=== PATIENT | male | born 1960 | race Two or more races ===

== ENCOUNTER 2016-07-25 18:59 | Inpatient (IN) | payer OTHER, SELFPAY ==
[2016-07-25] MEDS ORDERED: Sodium Chloride 0.9% 10 ML Syringe FLUSH PRN (19:15)
[2016-07-25] MEDS ORDERED: Sodium Chloride 0.9% 2.5 ML Syringe FLUSH PRN (19:15)
[2016-07-25] MEDS ORDERED: Sodium Chloride 0.9% 1,000 ML IV SCH (19:15)
[2016-07-25] MEDS ORDERED: Aspirin 81 MG Tab.Chew PO ONE (19:15)
--- NOTE | 2016-07-25 19:20 | EDM.PDOC ---
ED HISTORY OF PRESENT ILLNESS - General Chief Complaint: Respiratory Problem Stated Complaint: TROUBLE BREATHING/HEART PROBLEMS Time Seen by Provider: 07/25/16 19:07 Source of Information: Reports: Patient History Limitations: Reports: No limitations - History of Present Illness INITIAL COMMENTS - FREE TEXT/NARRATIVE: HISTORY AND PHYSICAL: History of present illness: 55-year-old [place] male [place] one [place] ago now presents to the emergency department brought in by family for evaluation of mild shortness of breath off his baseline and one episode of dizziness today. 3 days ago patient received mild shortness of breath. No chest pain fever productive cough or pleuritic pain. Patient has been a long-term smoker and has no known history of high blood pressure cholesterol diabetes or family history of heart disease or heart problems. Went to a clinic yesterday an x-ray was done at which time he was told he might have some congestive heart failure because his heart was enlarged. No EKG or labs were done. Patient was referred as an outpatient mammographer and he made an appointment but later today experienced an episode of lightheadedness so his family brought him to the emergency department for evaluation. By patient's description he was not close to fainting he just felt slightly lightheaded. Patient has had no chest pain pressure tightness squeezing or any chest discomfort whatsoever. Review of systems: As per history of present illness and below otherwise all systems reviewed and negative. Past medical history: As per history of present illness and as reviewed below otherwise noncontributory. Surgical history: As per history of present illness and as reviewed below otherwise noncontributory. Social history: No reported history of drug or alcohol abuse. Family history: As per history of present illness and as reviewed below otherwise noncontributory. Physical exam: HEENT: Atraumatic, normocephalic, pupils reactive, negative for conjunctival pallor or scleral icterus, mucous membranes moist, throat clear, neck supple, nontender, trachea midline. Lungs: Clear to auscultation, breath sounds equal bilaterally, chest nontender. Heart: S1S2, irregularly irregular negative for clicks, rubs, or JVD. Ventricular rate ranging from 80-108 Abdomen: Soft, nondistended, nontender. Negative for masses or hepatosplenomegaly. Negative for costovertebral tenderness. Pelvis: Stable nontender. Genitourinary: Deferred. Rectal: Deferred. Extremities: Atraumatic, negative for cords or calf pain. Neurovascular unremarkable. No edema Neuro: Awake, alert, oriented. Cranial nerves grossly unremarkable. Cerebellum unremarkable. Motor and sensory unremarkable throughout. Exam nonfocal. Diagnostics: [Chest x-ray interpreted by me cardiomegaly with cephalization, congestive changes, no ely pulmonary edema no infiltrate EKG #1 at 7:02 PM A. fib with ventricular rate of 108, anterior Q waves with repolarization abnormality, no STEMI ] EKG #2 at 7:25 PM atrial flutter at 77 anterior Q waves with repolarization abnormality no STEMI Therapeutics: [] Impression: [] Plan: [Signs and symptoms consistent with new onset A. fib with suspected new onset mild CHF. Chest x-ray with megaly and congestive changes however patient has no respiratory distress or ely pulmonary edema. Normal respiratory rate and pulse ox. Patient stable and asymptomatic. Patient had no chest pain at any time since arriving in the [facility] nor over the last 3 days during his mild symptomatic manifestation nor today before or after his episode of mild dizziness. Negative. BNP elevated at 1457. Case discussed with Dr. Post [facility] is training professional who is aware of history and findings and agrees with inpatient telemetry admission for workup and treatment of new onset A. fib and new onset CHF. Definitive disposition and diagnosis as appropriate pending reevaluation and review of above. - Related Data Allergies/ADRs: Allergies Allergy/AdvReac Type Severity Reaction Status Date / Time No Known Allergies Allergy Verified 07/25/16 19:17 Home Meds: Home Meds . [No Known Home Meds] 07/25/16 [History] Past Medical History HEENT History: Reports: None Cardiovascular History: Reports: None Respiratory History: Reports: None Gastrointestinal History: Reports: None Genitourinary History: Reports: None Musculoskeletal History: Reports: None Neurological History: Reports: None Psychiatric History: Reports: None Endocrine/Metabolic History: Reports: None Hematologic History: Reports: None Immunologic History: Reports: None Oncologic (Cancer) History: Reports: None Dermatologic History: Reports: None - Infectious Disease History Infectious Disease History: Reports: None - Past Surgical History Head Surgeries/Procedures: Reports: None GI Surgical History: Reports: Appendectomy Social & Family History - Family History Family Medical History: Noncontributory - Tobacco Use Smoking Status *Q: Former Smoker - Caffeine Use Caffeine Use: Reports: Coffee - Recreational Drug Use Recreational Drug Use: No ED ROS GENERAL - Review of Systems Review Of Systems: See Below (Per history of present illness) ED EXAM, GENERAL - Physical Exam Exam: See Below (History of present illness) Course - Vital Signs Last Recorded V/S: Last Vital Signs Temp 36.3 C 07/25/16 19:11 Pulse 82 07/25/16 19:11 Resp 21 H 07/25/16 19:11 BP 152/76 H 07/25/16 19:11 Pulse Ox 100 07/25/16 19:11 - Orders/Labs/Meds Orders: Active Orders 24 hr Category Date Time Status Admission Status [Patient Status] [ADT] Stat ADT 07/25/16 20:21 Ordered EKG 12 Lead [EKG Documentation Completion] [RC] STAT Care 07/25/16 19:15 Active EKG Documentation Completion [RC] STAT Care 07/25/16 19:22 Active Chest 1V Frontal [CR] Stat Exams 07/25/16 19:15 Taken Furosemide [Lasix] Med 07/25/16 20:25 Once 20 mg IVPUSH NOW ONE Sodium Chloride 0.9% [Normal Saline] 1,000 ml Med 07/25/16 19:15 Active IV ASDIRECTED Sodium Chloride 0.9% [Saline Flush] Med 07/25/16 19:15 Active 10 ml FLUSH ASDIRECTED PRN Sodium Chloride 0.9% [Saline Flush] Med 07/25/16 19:15 Active 2.5 ml FLUSH ASDIRECTED PRN Peripheral IV Insertion Adult [OM.PC] Stat Oth 07/25/16 19:15 Ordered Medication Orders Furosemide (Lasix) 20 mg IVPUSH NOW ONE Stop: 07/25/16 20:26 Sodium Chloride (Normal Saline) 1,000 mls @ 125 mls/hr IV ASDIRECTED TELLY Last Admin: 07/25/16 19:26 Dose: 125 mls/hr Sodium Chloride (Saline Flush) 10 ml FLUSH ASDIRECTED PRN PRN Reason: Keep Vein Open Sodium Chloride (Saline Flush) 2.5 ml FLUSH ASDIRECTED PRN PRN Reason: Keep Vein Open Labs: Laboratory Tests 07/25/16 07/25/16 07/25/16 Range/Units 19:20 19:20 19:20 WBC 10.03 (4.0-11.0) K/uL RBC 4.99 (4.50-5.90) M/uL Hgb 15.7 (13.0-17.0) g/dL Hct 45.2 (38.0-50.0) % MCV 90.6 (80.0-98.0) fL MCH 31.5 (27.0-32.0) pg MCHC 34.7 (31.0-37.0) g/dL RDW Std Deviation 43.6 (28.0-62.0) fl RDW Coeff of Hung 13 (11.0-15.0) % Plt Count 168 (150-400) K/uL MPV 11.00 (7.40-12.00) fL Neut % (Auto) 37.5 L (48.0-80.0) % Lymph % (Auto) 49.5 H (16.0-40.0) % [place] % (Auto) 6.7 (0.0-15.0) % Eos % (Auto) 5.9 (0.0-7.0) % Baso % (Auto) 0.4 (0.0-1.5) % Neut # (Auto) 3.8 (1.4-5.7) K/uL Lymph # (Auto) 5.0 H (0.6-2.4) K/uL [place] # (Auto) 0.7 (0.0-0.8) K/uL Eos # (Auto) 0.6 (0.0-0.7) K/uL Baso # (Auto) 0.0 (0.0-0.1) K/uL Nucleated RBC % 0.9 /100WBC Nucleated RBCs # 0 K/uL Sodium 136 (136-146) mmol/L Potassium 4.4 (3.5-5.1) mmol/L Chloride 108 (98-110) mmol/L Carbon Dioxide 18 L (21-31) mmol/L BUN 15 (6.0-23.0) mg/dL Creatinine 1.1 (0.6-1.5) mg/dL Est Cr Clr Drug Dosing 66.86 mL/min Estimated GFR (MDRD) > 60.0 ml/min Glucose 129 H (60-110) mg/dL Calcium 8.8 (8.8-10.8) mg/dL Total Bilirubin 0.5 (0.1-1.5) mg/dL AST 31 (5-40) IU/L ALT 49 (8-54) IU/L Alkaline Phosphatase 63 (40-150) Troponin I 0.11 (0.0-0.29) NG/ML B-Natriuretic Peptide (<100) PG/ML Total Protein 7.9 (6.0-8.0) g/dL Albumin 4.0 (3.5-5.0) g/dL Globulin 3.9 H (2.0-3.5) g/dL Albumin/Globulin Ratio 1.0 L (1.3-2.8) 07/25/16 Range/Units 19:20 WBC (4.0-11.0) K/uL RBC (4.50-5.90) M/uL Hgb (13.0-17.0) g/dL Hct (38.0-50.0) % MCV (80.0-98.0) fL MCH (27.0-32.0) pg MCHC (31.0-37.0) g/dL RDW Std Deviation (28.0-62.0) fl RDW Coeff of Hung (11.0-15.0) % Plt Count (150-400) K/uL MPV (7.40-12.00) fL Neut % (Auto) (48.0-80.0) % Lymph % (Auto) (16.0-40.0) % [place] % (Auto) (0.0-15.0) % Eos % (Auto) (0.0-7.0) % Baso % (Auto) (0.0-1.5) % Neut # (Auto) (1.4-5.7) K/uL Lymph # (Auto) (0.6-2.4) K/uL [place] # (Auto) (0.0-0.8) K/uL Eos # (Auto) (0.0-0.7) K/uL Baso # (Auto) (0.0-0.1) K/uL Nucleated RBC % /100WBC Nucleated RBCs # K/uL Sodium (136-146) mmol/L Potassium (3.5-5.1) mmol/L Chloride (98-110) mmol/L Carbon Dioxide (21-31) mmol/L BUN (6.0-23.0) mg/dL Creatinine (0.6-1.5) mg/dL Est Cr Clr Drug Dosing mL/min Estimated GFR (MDRD) ml/min Glucose (60-110) mg/dL Calcium (8.8-10.8) mg/dL Total Bilirubin (0.1-1.5) mg/dL AST (5-40) IU/L ALT (8-54) IU/L Alkaline Phosphatase (40-150) Troponin I (0.0-0.29) NG/ML B-Natriuretic Peptide 1457 H (<100) PG/ML Total Protein (6.0-8.0) g/dL Albumin (3.5-5.0) g/dL Globulin (2.0-3.5) g/dL Albumin/Globulin Ratio (1.3-2.8) Meds: Medications Generic Name Dose Route Start Last Admin Trade Name Freq PRN Reason Stop Dose Admin Furosemide 20 mg 07/25/16 20:25 Lasix IVPUSH 07/25/16 20:26 NOW ONE Sodium Chloride 1,000 mls @ 125 mls/hr 07/25/16 19:15 07/25/16 19:26 Normal Saline IV 125 mls/hr ASDIRECTED TELLY Administration Sodium Chloride 10 ml 07/25/16 19:15 Saline Flush FLUSH ASDIRECTED PRN Keep Vein Open Sodium Chloride 2.5 ml 07/25/16 19:15 Saline Flush FLUSH ASDIRECTED PRN Keep Vein Open Discontinued Medications Generic Name Dose Route Start Last Admin Trade Name Freq PRN Reason Stop Dose Admin Aspirin 324 mg 07/25/16 19:15 07/25/16 19:27 Aspirin PO 07/25/16 19:16 324 mg ONETIME ONE Administration Departure - Departure Time of Disposition: 20:26 Disposition: Admitted As Inpatient 64 Condition: good Clinical Impression: CHF (congestive heart failure), Atrial fibrillation - My Orders Last 24 Hours: My Active Orders 07/25/16 19:15 EKG 12 Lead [EKG Documentation Completion] [RC] STAT Chest 1V Frontal [CR] Stat Sodium Chloride 0.9% [Normal Saline] 1,000 ml IV ASDIRECTED Sodium Chloride 0.9% [Saline Flush] 10 ml FLUSH ASDIRECTED PRN Sodium Chloride 0.9% [Saline Flush] 2.5 ml FLUSH ASDIRECTED PRN Peripheral IV Insertion Adult [OM.PC] Stat 07/25/16 19:22 EKG Documentation Completion [RC] STAT 07/25/16 20:21 Admission Status [Patient Status] [ADT] Stat 07/25/16 20:25 Furosemide [Lasix] 20 mg IVPUSH NOW ONE - Assessment/Plan Last 24 Hours: My Active Orders 07/25/16 19:15 EKG 12 Lead [EKG Documentation Completion] [RC] STAT Chest 1V Frontal [CR] Stat Sodium Chloride 0.9% [Normal Saline] 1,000 ml IV ASDIRECTED Sodium Chloride 0.9% [Saline Flush] 10 ml FLUSH ASDIRECTED PRN Sodium Chloride 0.9% [Saline Flush] 2.5 ml FLUSH ASDIRECTED PRN Peripheral IV Insertion Adult [OM.PC] Stat 07/25/16 19:22 EKG Documentation Completion [RC] STAT 07/25/16 20:21 Admission Status [Patient Status] [ADT] Stat 07/25/16 20:25 Furosemide [Lasix] 20 mg IVPUSH NOW ONE
[2016-07-25 19:49] LABS: CHLORIDE,CL 108 mmol/L (98-110); SODIUM,NA 136 mmol/L (136-146)
[2016-07-25] MEDS ORDERED: Furosemide 40 MG/4 ML VIAL IVPUSH ONE (20:25)
[2016-07-25] MEDS ORDERED: Acetaminophen 325 MG Tab PO PRN (23:38)
--- NOTE | 2016-07-25 23:49 | PCM.HP ---
H&P History of Present Illness - General Admit Problem/Dx: Admission Diagnosis/Problem Admission Diagnosis/Problem Atrial fibrillation - History of Present Illness Initial Comments - Free Text/Narative: 55 yo male who is visiting from the [facility] presented with several day history of shortness of breath and orthopnea. He denies any chest pain, fevers , or cough. He was seen in clinic in [place] earlier this week and referred to cardiology. He states he takes medications for shortness of breath but does not know the names of his medications. He doesn't know if he has been diagnosed in the past with any heart or lung disease. Chest Pain Score (Numeric/FACES): 0 - Related Data Allergies/Adverse Reactions: Allergies Allergy/AdvReac Type Severity Reaction Status Date / Time No Known Allergies Allergy Verified 07/25/16 19:17 Home Medications: Home Meds amLODIPine [Norvasc] 5 mg PO DAILY 07/25/16 [History] Past Medical History HEENT History: Reports: None Cardiovascular History: Reports: Hypertension Respiratory History: Reports: None Gastrointestinal History: Reports: None Genitourinary History: Reports: None Musculoskeletal History: Reports: None Neurological History: Reports: None Psychiatric History: Reports: None Endocrine/Metabolic History: Reports: None Hematologic History: Reports: None Immunologic History: Reports: None Oncologic (Cancer) History: Reports: None Dermatologic History: Reports: None - Infectious Disease History Infectious Disease History: Reports: Chicken pox - Past Surgical History Head Surgeries/Procedures: Reports: None Cardiovascular Surgical History: Reports: None GI Surgical History: Reports: Appendectomy Social & Family History - Family History Family Medical History: Noncontributory - Tobacco Use Smoking Status *Q: Current Every Day Smoker Years of Tobacco use: 45 Packs/Tins Daily: 0.3 Used Tobacco, but Quit: No Second Hand Smoke Exposure: Yes - Caffeine Use Caffeine Use: Reports: Coffee, Soda - Recreational Drug Use Recreational Drug Use: No H&P Review of Systems - Review of Systems: Review Of Systems: See Below General: Reports: no symptoms HEENT: Reports: no symptoms Pulmonary: Reports: No Symptoms Cardiovascular: Reports: orthopnea, lightheadedness. Denies: chest pain, palpitations, syncope Gastrointestinal: Reports: No symptoms Genitourinary: Reports: no symptoms Musculoskeletal: Reports: no symptoms Skin: Reports: no symptoms Psychiatric: Reports: no symptoms Neurological: Reports: No Symptoms Hematologic/Lymphatic: Reports: no symptoms Immunologic: Reports: no symptoms Exam - Exam Exam: See Below - Vital Signs Vital Signs: Last Vital Signs Temp 36.4 C 07/25/16 20:55 Pulse 92 07/25/16 20:55 Resp 20 07/25/16 20:55 BP 154/70 H 07/25/16 20:55 Pulse Ox 93 L 07/25/16 20:55 Weight: 66.8 kg - Exam General: alert, oriented Neck: supple, trachea midline Lungs: Clear to auscultation, Normal respiratory effort Cardiovascular: regular rate, regular rhythm Abdomen: normal bowel sounds, soft Extremities: normal inspection. No: edema Skin: warm, dry, intact - Patient Data Result Diagrams: 07/26/16 06:50 07/26/16 06:50 Imaging Impressions last 24 hrs: CHest x-ray- carrdiomegaly mild interstital infiltrates bilaterally EKG INTERPRETATION Rhythm: a-flutter Rate (beats/min): 76 *Q Meaningful Use (ADM) - VTE *Q VTE Criteria *Q: - Stroke *Q Stroke Criteria *Q: - AMI *Q AMI Criteria *Q: Problem List Initiated/Reviewed/Updated: Yes Orders Last 24hrs: Active Orders 24 hr Category Date Time Status Antiembolic Devices [RC] PER UNIT ROUTINE Care 07/25/16 23:40 Ordered Intake and Output [RC] QSHIFT Care 07/25/16 23:38 Ordered Oxygen Therapy [RC] PRN Care 07/25/16 23:38 Ordered Telemetry Monitoring [Cardiac Monitoring] [RC] Q8H Care 07/25/16 20:33 Active Up ad Juju [RC] ASDIRECTED Care 07/25/16 23:38 Ordered VTE/DVT Education [RC] PER UNIT ROUTINE Care 07/25/16 23:38 Ordered Vital Signs [RC] Q4H Care 07/25/16 23:38 Ordered Heart Healthy Diet [DIET] Diet 07/25/16 Breakfast Active Echo 2D wo Cont [US] Routine Exams 07/25/16 23:41 Ordered BASIC METABOLIC PANEL,BMP [CHEM] AM Lab 07/26/16 05:11 Ordered BASIC METABOLIC PANEL,BMP [CHEM] AM Lab 07/27/16 05:11 Ordered BASIC METABOLIC PANEL,BMP [CHEM] AM Lab 07/28/16 05:11 Ordered CBC WITH AUTO DIFF [HEME] AM Lab 07/26/16 05:11 Ordered CBC WITH AUTO DIFF [HEME] AM Lab 07/27/16 05:11 Ordered CBC WITH AUTO DIFF [HEME] AM Lab 07/28/16 05:11 Ordered TROPONIN I [CHEM] Q6H Lab 07/26/16 01:20 Ordered TROPONIN I [CHEM] Q6H Lab 07/26/16 07:20 Ordered Acetaminophen [Tylenol] Med 07/25/16 23:38 Ordered 650 mg PO Q4H PRN Enoxaparin [Lovenox] Med 07/26/16 09:00 Ordered 40 mg SUBCUT DAILY Furosemide [Lasix] Med 07/26/16 09:00 Ordered 40 mg IVPUSH DAILY Sequential Compression Device [OM.PC] Per Unit Routine Oth 07/25/16 23:38 Ordered Resuscitation Status Routine Resus Stat 07/25/16 23:38 Ordered Medication Orders Acetaminophen (Tylenol) 650 mg PO Q4H PRN PRN Reason: Pain (Mild 1-3)/fever Enoxaparin Sodium (Lovenox) 40 mg SUBCUT DAILY TELLY Furosemide (Lasix) 40 mg IVPUSH DAILY TELLY Sodium Chloride (Saline Flush) 10 ml FLUSH ASDIRECTED PRN PRN Reason: Keep Vein Open Sodium Chloride (Saline Flush) 2.5 ml FLUSH ASDIRECTED PRN PRN Reason: Keep Vein Open Assessment/Plan Comment:: 55 yo male who is being admitted for conjestive heart failure exacerbation in the setting of atrial flutter. We will diuresis with lasix. Echocardiogram has been ordered. Currently his atrial flutter is rate controlled but does increase with exertion. Will consider adding beta addie after further diuresis.
[2016-07-26 07:17] LABS: CHLORIDE,CL 107 mmol/L (98-110); SODIUM,NA 140 mmol/L (136-146)
[2016-07-26] MEDS: Enoxaparin 40 MG/0.4 ML Syringe SUBCUT SCH (08:17)
[2016-07-26] MEDS: Furosemide 40 MG/4 ML VIAL IVPUSH SCH (08:17)
--- NOTE | 2016-07-26 09:56 | PCM.PN ---
- Review of Systems Systems Review Comment:: shortness of breath improving. - Patient Data Vitals - most recent: Last Vital Signs Temp 36.7 C 07/26/16 08:00 Pulse 80 07/26/16 08:00 Resp 20 07/26/16 08:00 BP 129/69 07/26/16 08:00 Pulse Ox 95 07/26/16 08:00 Weight - most recent: 66.8 kg I&O - last 24 hours: Intake & Output 07/25/16 07/26/16 07/26/16 22:59 06:59 14:59 Intake Total 150 350 Output Total 1300 Balance 150 -950 Lab Results last 24 hrs: Laboratory Results - last 24 hr 07/26/16 07/26/16 07/26/16 Range/Units 01:20 06:50 06:50 WBC 8.90 (4.0-11.0) K/uL RBC 4.96 (4.50-5.90) M/uL Hgb 15.2 (13.0-17.0) g/dL Hct 45.1 (38.0-50.0) % MCV 90.9 (80.0-98.0) fL MCH 30.6 (27.0-32.0) pg MCHC 33.7 (31.0-37.0) g/dL RDW Std Deviation 43.1 (28.0-62.0) fl RDW Coeff of Hung 13 (11.0-15.0) % Plt Count 163 (150-400) K/uL MPV 10.40 (7.40-12.00) fL Neut % (Auto) 41.5 L (48.0-80.0) % Lymph % (Auto) 42.9 H (16.0-40.0) % [place] % (Auto) 8.7 (0.0-15.0) % Eos % (Auto) 6.5 (0.0-7.0) % Baso % (Auto) 0.4 (0.0-1.5) % Neut # (Auto) 3.7 (1.4-5.7) K/uL Lymph # (Auto) 3.8 H (0.6-2.4) K/uL [place] # (Auto) 0.8 (0.0-0.8) K/uL Eos # (Auto) 0.6 (0.0-0.7) K/uL Baso # (Auto) 0.0 (0.0-0.1) K/uL Nucleated RBC % 0.0 /100WBC Nucleated RBCs # 0 K/uL Sodium (136-146) mmol/L Potassium (3.5-5.1) mmol/L Chloride (98-110) mmol/L Carbon Dioxide (21-31) mmol/L BUN (6.0-23.0) mg/dL Creatinine (0.6-1.5) mg/dL Est Cr Clr Drug Dosing mL/min Estimated GFR (MDRD) ml/min Glucose (60-110) mg/dL Calcium (8.8-10.8) mg/dL Troponin I 0.10 0.10 (0.0-0.29) NG/ML 07/26/16 Range/Units 06:50 WBC (4.0-11.0) K/uL RBC (4.50-5.90) M/uL Hgb (13.0-17.0) g/dL Hct (38.0-50.0) % MCV (80.0-98.0) fL MCH (27.0-32.0) pg MCHC (31.0-37.0) g/dL RDW Std Deviation (28.0-62.0) fl RDW Coeff of Hung (11.0-15.0) % Plt Count (150-400) K/uL MPV (7.40-12.00) fL Neut % (Auto) (48.0-80.0) % Lymph % (Auto) (16.0-40.0) % [place] % (Auto) (0.0-15.0) % Eos % (Auto) (0.0-7.0) % Baso % (Auto) (0.0-1.5) % Neut # (Auto) (1.4-5.7) K/uL Lymph # (Auto) (0.6-2.4) K/uL [place] # (Auto) (0.0-0.8) K/uL Eos # (Auto) (0.0-0.7) K/uL Baso # (Auto) (0.0-0.1) K/uL Nucleated RBC % /100WBC Nucleated RBCs # K/uL Sodium 140 (136-146) mmol/L Potassium 3.9 (3.5-5.1) mmol/L Chloride 107 (98-110) mmol/L Carbon Dioxide 23 (21-31) mmol/L BUN 14 (6.0-23.0) mg/dL Creatinine 1.0 (0.6-1.5) mg/dL Est Cr Clr Drug Dosing 73.55 mL/min Estimated GFR (MDRD) > 60.0 ml/min Glucose 103 (60-110) mg/dL Calcium 8.8 (8.8-10.8) mg/dL Troponin I (0.0-0.29) NG/ML Med Orders - Current: Current Medications Acetaminophen (Tylenol) 650 mg PO Q4H PRN PRN Reason: Pain (Mild 1-3)/fever Enoxaparin Sodium (Lovenox) 40 mg SUBCUT DAILY [facility] Last Admin: 07/26/16 08:17 Dose: 40 mg Furosemide (Lasix) 40 mg IVPUSH DAILY [facility] Last Admin: 07/26/16 08:17 Dose: 40 mg Metoprolol Tartrate (Lopressor) 25 mg PO BIDMEALS [facility] Sodium Chloride (Saline Flush) 10 ml FLUSH ASDIRECTED PRN PRN Reason: Keep Vein Open Sodium Chloride (Saline Flush) 2.5 ml FLUSH ASDIRECTED PRN PRN Reason: Keep Vein Open Discontinued Medications Aspirin (Aspirin) 324 mg PO ONETIME ONE Stop: 07/25/16 19:16 Last Admin: 07/25/16 19:27 Dose: 324 mg Furosemide (Lasix) 20 mg IVPUSH NOW ONE Stop: 07/25/16 20:26 Last Admin: 07/25/16 21:51 Dose: 20 mg Sodium Chloride (Normal Saline) 1,000 mls @ 125 mls/hr IV ASDIRECTED [facility] Last Admin: 07/25/16 19:26 Dose: 125 mls/hr - Exam General: alert, oriented Lungs: Clear to auscultation, Normal respiratory effort Cardiovascular: Regular Rate, Regular Rhythm Abdomen: bowel sounds present, soft, no tenderness, no distension Extremities: no edema - Problem List Review Problem List Initiated/Reviewed/Updated: Yes - My Orders Last 24 Hours: My Active Orders 07/25/16 20:33 Telemetry Monitoring [Cardiac Monitoring] [RC] Q8H 07/25/16 23:38 Intake and Output [RC] Q12H Oxygen Therapy [RC] PRN Up ad Juju [RC] ASDIRECTED Vital Signs [RC] Q4H Acetaminophen [Tylenol] 650 mg PO Q4H PRN Sequential Compression Device [OM.PC] Per Unit Routine Resuscitation Status Routine 07/25/16 23:40 Antiembolic Devices [RC] PER UNIT ROUTINE 07/25/16 23:41 Echo 2D wo Cont [US] Routine 07/26/16 09:00 Enoxaparin [Lovenox] 40 mg SUBCUT DAILY Furosemide [Lasix] 40 mg IVPUSH DAILY 07/26/16 21:00 Metoprolol Tartrate [Lopressor] 25 mg PO BID 07/27/16 05:11 BASIC METABOLIC PANEL,BMP [CHEM] AM CBC WITH AUTO DIFF [HEME] AM 07/28/16 05:11 BASIC METABOLIC PANEL,BMP [CHEM] AM CBC WITH AUTO DIFF [HEME] AM - Plan Plan:: 55 yo male who is being admitted for conjestive heart failure exacerbation in the setting of atrial flutter. CHF: continue lasix. Echocardiogram has been ordered. Atrial flutter: will start metoprolol 25mg BID
[2016-07-26] MEDS ORDERED: Potassium Chloride 20 MEQ Tab.ER PO ONE (12:33)
[2016-07-26] MEDS ORDERED: Magnesium Sulfate/Water 2 GM in Premix Bag 1 BAG IV ONE (12:33)
[2016-07-26] MEDS: Metoprolol Tartrate 25 MG Tab PO SCH (16:01)
[2016-07-27 06:03] LABS: CHLORIDE,CL 105 mmol/L (98-110); SODIUM,NA 137 mmol/L (136-146)
[2016-07-27] MEDS: Enoxaparin 40 MG/0.4 ML Syringe SUBCUT SCH (08:50)
[2016-07-27] MEDS: Furosemide 40 MG/4 ML VIAL IVPUSH SCH (08:50)
[2016-07-27] MEDS: Aspirin 81 MG Tab.Chew PO SCH (08:50)
[2016-07-27] MEDS: Metoprolol Tartrate 25 MG Tab PO SCH ×2 (08:50→16:16)
--- NOTE | 2016-07-27 12:33 | PCM.PN ---
- Review of Systems Systems Review Comment:: shortness of breath improving - Patient Data Vitals - most recent: Last Vital Signs Temp 36.1 C 07/27/16 07:56 Pulse 78 07/27/16 08:50 Resp 16 07/27/16 07:56 BP 118/67 07/27/16 08:50 Pulse Ox 95 07/27/16 07:56 Weight - most recent: 64.8 kg I&O - last 24 hours: Intake & Output 07/26/16 07/27/16 07/27/16 22:59 06:59 14:59 Intake Total 500 200 Output Total 450 480 Balance 50 -280 Lab Results last 24 hrs: Laboratory Results - last 24 hr 07/27/16 07/27/16 Range/Units 05:27 05:27 WBC 9.05 (4.0-11.0) K/uL RBC 5.01 (4.50-5.90) M/uL Hgb 14.8 (13.0-17.0) g/dL Hct 45.6 (38.0-50.0) % MCV 91.0 (80.0-98.0) fL MCH 29.5 (27.0-32.0) pg MCHC 32.5 (31.0-37.0) g/dL RDW Std Deviation 43.4 (28.0-62.0) fl RDW Coeff of Hung 13 (11.0-15.0) % Plt Count 174 (150-400) K/uL MPV 10.50 (7.40-12.00) fL Neut % (Auto) 32.8 L (48.0-80.0) % Lymph % (Auto) 53.4 H (16.0-40.0) % [place] % (Auto) 6.9 (0.0-15.0) % Eos % (Auto) 6.3 (0.0-7.0) % Baso % (Auto) 0.6 (0.0-1.5) % Neut # (Auto) 3.0 (1.4-5.7) K/uL Lymph # (Auto) 4.8 H (0.6-2.4) K/uL [place] # (Auto) 0.6 (0.0-0.8) K/uL Eos # (Auto) 0.6 (0.0-0.7) K/uL Baso # (Auto) 0.1 (0.0-0.1) K/uL Nucleated RBC % 0.0 /100WBC Nucleated RBCs # 0 K/uL Sodium 137 (136-146) mmol/L Potassium 3.8 (3.5-5.1) mmol/L Chloride 105 (98-110) mmol/L Carbon Dioxide 22 (21-31) mmol/L BUN 22 (6.0-23.0) mg/dL Creatinine 1.1 (0.6-1.5) mg/dL Est Cr Clr Drug Dosing 67.20 mL/min Estimated GFR (MDRD) > 60.0 ml/min Glucose 101 (60-110) mg/dL Calcium 8.8 (8.8-10.8) mg/dL Med Orders - Current: Current Medications Acetaminophen (Tylenol) 650 mg PO Q4H PRN PRN Reason: Pain (Mild 1-3)/fever Aspirin (Aspirin) 81 mg PO DAILY [facility] Last Admin: 07/27/16 08:50 Dose: 81 mg Enoxaparin Sodium (Lovenox) 40 mg SUBCUT DAILY [facility] Last Admin: 07/27/16 08:50 Dose: 40 mg Furosemide (Lasix) 40 mg IVPUSH DAILY [facility] Last Admin: 07/27/16 08:50 Dose: 40 mg Metoprolol Tartrate (Lopressor) 25 mg PO BIDMEALS [facility] Last Admin: 07/27/16 08:50 Dose: 25 mg Sodium Chloride (Saline Flush) 10 ml FLUSH ASDIRECTED PRN PRN Reason: Keep Vein Open Sodium Chloride (Saline Flush) 2.5 ml FLUSH ASDIRECTED PRN PRN Reason: Keep Vein Open Discontinued Medications Aspirin (Aspirin) 324 mg PO ONETIME ONE Stop: 07/25/16 19:16 Last Admin: 07/25/16 19:27 Dose: 324 mg Furosemide (Lasix) 20 mg IVPUSH NOW ONE Stop: 07/25/16 20:26 Last Admin: 07/25/16 21:51 Dose: 20 mg Sodium Chloride (Normal Saline) 1,000 mls @ 125 mls/hr IV ASDIRECTED [facility] Last Admin: 07/25/16 19:26 Dose: 125 mls/hr Magnesium Sulfate 2 gm/ Premix 50 mls @ 50 mls/hr IV ONETIME ONE Stop: 07/26/16 13:32 Last Admin: 07/26/16 12:50 Dose: 50 mls/hr Potassium Chloride (Klor-Con M20) 20 meq PO ONETIME ONE Stop: 07/26/16 12:34 Last Admin: 07/26/16 13:04 Dose: 20 meq - Exam General: alert, oriented Lungs: Clear to auscultation, Normal respiratory effort Cardiovascular: Regular Rate, Regular Rhythm Abdomen: bowel sounds present, soft, no tenderness, no distension Extremities: no edema - Problem List Review Problem List Initiated/Reviewed/Updated: Yes - My Orders Last 24 Hours: My Active Orders 07/26/16 17:00 Metoprolol Tartrate [Lopressor] 25 mg PO BIDMEALS 07/27/16 Echo Comp wo Cont [US] Routine 07/27/16 09:00 Aspirin 81 mg PO DAILY 07/27/16 12:31 INR,PT,PROTHROMBIN TIME [COAG] Routine Warfarin Dosing [Coumadin Ask] 1 each PO DAILY ONE 07/28/16 05:11 BASIC METABOLIC PANEL,BMP [CHEM] AM CBC WITH AUTO DIFF [HEME] AM - Plan Plan:: 55 yo male who is being admitted for congestive heart failure exacerbation in the setting of atrial flutter. CHF: continue lasix. Echocardiogram report is pending Atrial flutter: on metoprolol 25mg BID will start coumadin likely discharge home tomorrow
[2016-07-27] MEDS ORDERED: Calcium Carbonate 500 MG Tab.Chew PO PRN (12:34)
[2016-07-27] MEDS: Pantoprazole 40 MG Tab.CR PO SCH (12:44)
[2016-07-27] MEDS: Warfarin 5 MG Tab PO SCH (14:29)
[2016-07-28 06:33] LABS: CHLORIDE,CL 104 mmol/L (98-110); SODIUM,NA 138 mmol/L (136-146)
[2016-07-28] MEDS: Pantoprazole 40 MG Tab.CR PO SCH (06:43)
[2016-07-28] MEDS: Aspirin 81 MG Tab.Chew PO SCH (08:33)
[2016-07-28] MEDS: Metoprolol Tartrate 25 MG Tab PO SCH (08:34)
[2016-07-28] MEDS: Enoxaparin 40 MG/0.4 ML Syringe SUBCUT SCH (08:38)
[2016-07-28] MEDS: Furosemide 40 MG/4 ML VIAL IVPUSH SCH (10:01)
--- NOTE | 2016-07-28 10:14 | CR ---
EXAM DATE: 07/25/16 PATIENT'S AGE: 55 Patient: GIANCARLO BERMUDEZ Facility: [place], [place] Site . Site : 1960 Study: XRay Chest [id number]/7/[id number] 7:42:38 PM Ordering Physician: Doctor Heath Final Report: INDICATION: Chest pain. COMPARISON: None. FINDINGS/IMPRESSION: Mild cardiomegaly. Mild pulmonary vascular congestion. Terrie B-lines in the lateral lower lung suggesting mild interstitial edema. The findings most likely reflect mild congestive heart failure. No focal lung consolidation or definite pleural effusions. Unremarkable osseous structures. Dictated by Ronnie Goodwin MD @ 07/25/2016 7:52:43 PM Dictated by: Ronnie Goodwin MD @ 07/25/2016 19:52:54 (Electronic Signature) Report Signed by Proxy and Original Signed Document filed in the Medical Record. MTDD
[2016-07-28 12:05] VITALS: BP 104/57
[2016-07-28] MEDS: Warfarin 5 MG Tab PO SCH (13:43)
[2016-07-29] MEDS ORDERED: Furosemide 20 MG Tab PO SCH (09:00)
--- NOTE | 2016-07-30 14:58 | ECHO ---
EXAM DATE: 07/25/16 The echocardiogram report can be seen in this patient's EMR (Electronic Medical Record) in the Reports section. BOAZ
--- NOTE | 2016-07-30 18:30 | PCM.DCSUM1 ---
Discharge Summary - Hospital Course Free Text/Narrative:: Admission diagnosis: 1. CHF 2. Atrial flutter Discharge diagnosis: 1. Systolic CHF with reduced ejection fraction 2. Atrial flutter, rate controlled and requiring anticoagulation 55 year old male admitted with shortness of breath and orthopnea. CXR showed evidence of CHF. ECHO confirmed this showing an EF of 15-20%, generalized hypokinesis of left ventricle. Beta addie and ACEI added given ECHO findings. BNP elevated at 1457. Patient given multiple doses of lasix which helped him diurese 3.6L. Patient never required supplemental O2 during hospitalization. Patient reported improved shortness of breath with lasix treatment. Telemetry showed atrial flutter that was rate controlled. He was started on Warfarin. INR at discharge was 1.24. Troponin was negative. Patient reported feeling better at time of discharge. - Discharge Data Discharge Date: 07/28/16 Discharge Disposition: Home, Self-Care 01 Condition: Fair - Discharge Diagnosis/Problem(s) (1) Atrial fibrillation SNOMED Code(s): 87282445 ICD Code: I48.91 - UNSPECIFIED ATRIAL FIBRILLATION Status: Acute (2) CHF (congestive heart failure) SNOMED Code(s): 71634840 ICD Code: I50.9 - HEART FAILURE, UNSPECIFIED Status: Acute - Patient Instructions Diet: Heart Healthy Diet Activity: As Tolerated Showering/Bathing: August Shower Notify Provider of: Fever, Increased Pain, Nausea and/or Vomiting - Discharge Plan Prescriptions/Med Rec: Furosemide [Lasix] 20 mg PO DAILY #30 tablet Lisinopril 2.5 mg PO DAILY #30 tablet Metoprolol Succinate 50 mg PO DAILY #30 tab Warfarin [Coumadin] 5 mg PO DAILY #30 tablet Home Medications: Home Meds amLODIPine [Norvasc] 5 mg PO DAILY 07/25/16 [History] Furosemide [Lasix] 20 mg PO DAILY #30 tablet 07/28/16 [Rx] Lisinopril 2.5 mg PO DAILY #30 tablet 07/28/16 [Rx] Metoprolol Succinate 50 mg PO DAILY #30 tab 07/28/16 [Rx] Warfarin [Coumadin] 5 mg PO DAILY #30 tablet 07/28/16 [Rx] Patient Handouts: Furosemide tablets, Metoprolol tablets, Warfarin: What You Need to Know, Atrial Flutter, Prothrombin Time, International Normalized Ratio Test, Lisinopril tablets, Heart Failure, [id number], Atrial Fibrillation, Easy -to-Read Referrals: [facility] [Outside] Hardeep Curiel MD [Physician] - 08/01/16 8:00 am () - Discharge Summary/Plan Comment DC Time >30 min.: No Discharge Summary/Plan Comment: Admission diagnosis: 1. CHF 2. Atrial flutter Discharge diagnosis: 1. Systolic CHF with reduced ejection fraction 2. Atrial flutter, rate controlled and requiring anticoagulation 55 year old male admitted with shortness of breath and orthopnea. CXR showed evidence of CHF. ECHO confirmed this showing an EF of 15-20%, generalized hypokinesis of left ventricle. Beta addie and ACEI added given ECHO findings. BNP elevated at 1457. Patient given multiple doses of lasix which helped him diurese 3.6L. Patient never required supplemental O2 during hospitalization. Patient reported improved shortness of breath with lasix treatment. Telemetry showed atrial flutter that was rate controlled. He was started on Warfarin. INR at discharge was 1.24. Troponin was negative. Patient reported feeling better at time of discharge. Discharge plan: 1. f/u with cs associate 2. f/u with PCP, Dr. Vega 3. Prescribed lasix 20mg qday, Lisinopril 2.5mg daily, metoprolol 50mg daily, warfarin 5mg daily 4. Continued on Norvasc 5mg daily - Patient Data Vitals - Most Recent: Last Vital Signs Temp 97.2 F 07/28/16 12:00 Pulse 74 07/28/16 12:00 Resp 18 07/28/16 12:00 BP 104/57 L 07/28/16 12:00 Pulse Ox 97 07/28/16 12:00 Weight - Most Recent: 143 lb 1.28 oz Med Orders - Current: Current Medications Discontinued Medications Acetaminophen (Tylenol) 650 mg PO Q4H PRN PRN Reason: Pain (Mild 1-3)/fever Aspirin (Aspirin) 324 mg PO ONETIME ONE Stop: 07/25/16 19:16 Last Admin: 07/25/16 19:27 Dose: 324 mg Aspirin (Aspirin) 81 mg PO DAILY [facility] Last Admin: 07/28/16 08:33 Dose: 81 mg Calcium Carbonate/Glycine (Tums) 500 mg PO TIDMEALS PRN PRN Reason: Indigestion Last Admin: 07/27/16 12:44 Dose: 500 mg Enoxaparin Sodium (Lovenox) 40 mg SUBCUT DAILY [facility] Last Admin: 07/28/16 08:38 Dose: 40 mg Furosemide (Lasix) 20 mg IVPUSH NOW ONE Stop: 07/25/16 20:26 Last Admin: 07/25/16 21:51 Dose: 20 mg Furosemide (Lasix) 40 mg IVPUSH DAILY [facility] Last Admin: 07/28/16 10:01 Dose: Not Given Furosemide (Lasix) 20 mg PO DAILY [facility] Sodium Chloride (Normal Saline) 1,000 mls @ 125 mls/hr IV ASDIRECTED [facility] Last Admin: 07/25/16 19:26 Dose: 125 mls/hr Magnesium Sulfate 2 gm/ Premix 50 mls @ 50 mls/hr IV ONETIME ONE Stop: 07/26/16 13:32 Last Admin: 07/26/16 12:50 Dose: 50 mls/hr Metoprolol Tartrate (Lopressor) 25 mg PO BIDMEALS [facility] Last Admin: 07/28/16 08:34 Dose: 25 mg Pantoprazole Sodium (Protonix) 40 mg PO ACBREAKFAST [facility] Last Admin: 07/28/16 06:43 Dose: 40 mg Potassium Chloride (Klor-Con M20) 20 meq PO ONETIME ONE Stop: 07/26/16 12:34 Last Admin: 07/26/16 13:04 Dose: 20 meq Sodium Chloride (Saline Flush) 10 ml FLUSH ASDIRECTED PRN PRN Reason: Keep Vein Open Sodium Chloride (Saline Flush) 2.5 ml FLUSH ASDIRECTED PRN PRN Reason: Keep Vein Open Warfarin Sodium (Coumadin Ask) 1 each PO DAILY@1400 [facility] Last Admin: 07/28/16 13:43 Dose: Not Given Warfarin Sodium (Coumadin) 5 mg PO DAILY@1400 [facility] Last Admin: 07/28/16 13:43 Dose: 5 mg *Q Meaningful Use (DIS) - VTE *Q VTE Criteria *Q: - Stroke *Q Stroke Criteria *Q: - AMI *Q AMI Criteria *Q:
== END 2016-07-28 14:30 | disposition home or self-care (01) | DRG 292 ==
LOC: MW.ED 18:59 → MW.ICU 20:21 → MW.MS 07-27 06:24
PROVIDERS: ADMIT Internal Medicine; ATTEND Internal Medicine
DX: I50.20 Unspecified systolic (congestive) heart failure (principal); I48.92 Unspecified atrial flutter; I10 Essential (primary) hypertension; F17.200 Nicotine dependence, unspecified, uncomplicated; Z79.01 Long term (current) use of anticoagulants; Z79.899 Other long term (current) drug therapy
CPT/HCPCS: 36415; 71010; 71010-26; 80048; 80053; 81001; 83735; 83880; 84484; 85025; 85610; 93005; 93306; 96360; 99285; 99285-25; A9270-GY; J1650; J1940; J3475; J7040

== ENCOUNTER 2016-11-02 17:10 | Inpatient (IN) | payer OTHER, SELFPAY ==
[2016-11-02] MEDS ORDERED: Albuterol/Ipratropium 3.0-0.5 MG/3 ML Neb Soln NEB ONE (17:16)
[2016-11-02] MEDS ORDERED: Sodium Chloride 0.9% 10 ML Syringe FLUSH PRN (17:21)
[2016-11-02] MEDS ORDERED: Sodium Chloride 0.9% 2.5 ML Syringe FLUSH PRN (17:21)
[2016-11-02] MEDS ORDERED: Aspirin 81 MG Tab.Chew PO ONE (17:22)
[2016-11-02] MEDS ORDERED: Nitroglycerin 0.4 MG Tab.SL SL PRN (17:22)
[2016-11-02] MEDS ORDERED: Furosemide 40 MG/4 ML VIAL IVPUSH ONE (18:04)
--- NOTE | 2016-11-02 18:17 | EDM.PDOC ---
ED HPI GENERAL MEDICAL PROBLEM - General Chief Complaint: Respiratory Problem Stated Complaint: SHORTNESS OF BREATH Time Seen by Provider: 11/02/16 17:17 Source of Information: Reports: Patient, Family History Limitations: Reports: No Limitations - History of Present Illness INITIAL COMMENTS - FREE TEXT/NARRATIVE: HISTORY AND PHYSICAL: [] 55-year-old male presenting with difficulty breathing History of Present Illness: [] Patient has recent history of admission for new onset A. fib and congestive heart failure Currently has not been taking his aspirin daily. Patient did not refill his warfarin, follow-up appointment is on November 10 Patient recently to the [facility] from the [facility]. Language skills are limited. Review of Systems: As per history of present illness and below otherwise all systems reviewed and negative. Past medical history: As per history of present illness and as reviewed below otherwise noncontributory. Surgical history: As per history of present illness and as reviewed below otherwise noncontributory. Social history: No reported history of drug or alcohol abuse. Family history: As per history of present illness and as reviewed below otherwise noncontributory. Physical exam: Alert oriented man .answering questions appropriately . HEENT: Atraumatic, normocehpalic, pupils reactive, negative for conjunctival pallor or scleral icterus, mucous membranes moist, throat clear, neck supple, nontender, trachea midline. Lungs: Clear to auscultation, breath sounds equal bilaterally, chest non tender. Breath sounds are diminished. Heart: S1S2, regular, negative for clicks, rubs, or JVD. Abdomen: Soft, nondistended, nontender. Negative for masses or hepatossplenmegaly. Negative for costovertebral tenderness. Pelvis: Stable nontender. Genitourinary: Deferred. Rectal: Deferred Extremities: Atraumatic, negative for cords or calf pain. Neurovascular unremarkable. Neuro: Awake, alert, oriented. Cranial nerves II through XII unremarkable. Cerebellum unremarkable. Motor and sensory unremarkable throughout. Exam nonfocal. Discussed patient with Dr. Timo Alba, Hospitalist. He has agreed to inpatient admission with exacerbation of his heart failure . Discussed with the patient and his family the recommendation for admission and they are agreeable to stay in the hospital. Diagnostics: [CBC CMP troponin chest x-ray Therapeutics: [Lasix 40] Impression: [congestive heart failure Atrial flutter Shortness of breath ] Plan: [Admission inpatient Telemetry] Definitive disposition and diagnosis as appropriate pending reevaluation and review of above. Onset: Sudden no pain Pain Score (Numeric/FACES): 0 - Related Data Allergies Allergy/AdvReac Type Severity Reaction Status Date / Time No Known Allergies Allergy Verified 11/02/16 17:15 Home Meds: Home Meds amLODIPine [Norvasc] 5 mg PO DAILY 07/25/16 [History] Furosemide [Lasix] 20 mg PO DAILY #30 tablet 07/28/16 [Rx] Lisinopril 2.5 mg PO DAILY #30 tablet 07/28/16 [Rx] Metoprolol Succinate 50 mg PO DAILY #30 tab 07/28/16 [Rx] Past Medical History HEENT History: Reports: None Cardiovascular History: Reports: Heart Failure, Hypertension Respiratory History: Reports: None Gastrointestinal History: Reports: None Genitourinary History: Reports: None Musculoskeletal History: Reports: None Neurological History: Reports: None Psychiatric History: Reports: None Endocrine/Metabolic History: Reports: None Hematologic History: Reports: None Immunologic History: Reports: None Oncologic (Cancer) History: Reports: None Dermatologic History: Reports: None - Infectious Disease History Infectious Disease History: Reports: Chicken Pox, Measles, Mumps - Past Surgical History Head Surgeries/Procedures: Reports: None Cardiovascular Surgical History: Reports: None GI Surgical History: Reports: Appendectomy Social & Family History - Family History Family Medical History: Noncontributory - Tobacco Use Smoking Status *Q: Former Smoker Years of Tobacco use: 45 Packs/Tins Daily: 0.3 Used Tobacco, but Quit: No Tobacco Use Comment: stop 1 month ago Second Hand Smoke Exposure: Yes - Caffeine Use Caffeine Use: Reports: Coffee, Soda - Recreational Drug Use Recreational Drug Use: No ED ROS GENERAL - Review of Systems Review Of Systems: ROS reveals no pertinent complaints other than HPI. ED EXAM, GENERAL - Physical Exam Exam: See Below (See dictation) EKG INTERPRETATION Rhythm: A-Fib Rate (Beats/Min): 109 Comparison: No Change Course - Vital Signs Last Recorded V/S: Last Vital Signs Temp 36.1 C 11/02/16 17:16 Pulse 111 H 11/02/16 17:16 Resp 18 11/02/16 17:16 BP 137/70 11/02/16 17:16 Pulse Ox 97 11/02/16 17:16 - Orders/Labs/Meds Orders: Active Orders 24 hr Category Date Time Status Cardiac Monitoring [RC] . DIRECTED Care 11/02/16 17:21 Active EKG Documentation Completion [RC] STAT Care 11/02/16 17:21 Active Oxygen Therapy, ED [RC] ASDIRECTED Care 11/02/16 17:21 Active RT Aerosol Therapy [RC] ASDIRECTED Care 11/02/16 17:16 Active Chest 1V Frontal [CR] Stat Exams 11/02/16 17:21 Taken UA W/MICROSCOPIC [URIN] Stat Lab 11/02/16 17:21 Uncollected Sodium Chloride 0.9% [Saline Flush] Med 11/02/16 17:21 Active 10 ml FLUSH ASDIRECTED PRN Sodium Chloride 0.9% [Saline Flush] Med 11/02/16 17:21 Active 2.5 ml FLUSH ASDIRECTED PRN Saline Lock Insert [OM.PC] Stat Oth 11/02/16 17:21 Ordered Medication Orders Sodium Chloride (Saline Flush) 10 ml FLUSH ASDIRECTED PRN PRN Reason: Keep Vein Open Sodium Chloride (Saline Flush) 2.5 ml FLUSH ASDIRECTED PRN PRN Reason: Keep Vein Open Labs: Laboratory Tests 11/02/16 11/02/16 11/02/16 Range/Units 17:35 17:35 17:35 WBC 10.02 (4.0-11.0) K/uL RBC 5.09 (4.50-5.90) M/uL Hgb 15.7 (13.0-17.0) g/dL Hct 46.3 (38.0-50.0) % MCV 91.0 (80.0-98.0) fL MCH 30.8 (27.0-32.0) pg MCHC 33.9 (31.0-37.0) g/dL RDW Std Deviation 45.3 (28.0-62.0) fl RDW Coeff of Hung 14 (11.0-15.0) % Plt Count 162 (150-400) K/uL MPV 11.80 (7.40-12.00) fL Neut % (Auto) 45.5 L (48.0-80.0) % Lymph % (Auto) 44.8 H (16.0-40.0) % [place] % (Auto) 5.8 (0.0-15.0) % Eos % (Auto) 3.6 (0.0-7.0) % Baso % (Auto) 0.3 (0.0-1.5) % Neut # (Auto) 4.6 (1.4-5.7) K/uL Lymph # (Auto) 4.5 H (0.6-2.4) K/uL [place] # (Auto) 0.6 (0.0-0.8) K/uL Eos # (Auto) 0.4 (0.0-0.7) K/uL Baso # (Auto) 0.0 (0.0-0.1) K/uL Nucleated RBC % 0.0 /100WBC Nucleated RBCs # 0 K/uL INR (0.86-1.11) Sodium 137 (136-146) mmol/L Potassium 4.8 (3.5-5.1) mmol/L Chloride 107 (98-110) mmol/L Carbon Dioxide 22 (21-31) mmol/L BUN 17 (6.0-23.0) mg/dL Creatinine 1.3 (0.6-1.5) mg/dL Est Cr Clr Drug Dosing 56.57 mL/min Estimated GFR (MDRD) 56.9 ml/min Glucose 209 H (60-110) mg/dL Calcium 8.9 (8.8-10.8) mg/dL Total Bilirubin 0.6 (0.1-1.5) mg/dL AST 23 (5-40) IU/L ALT 23 (8-54) IU/L Alkaline Phosphatase 63 (40-150) Troponin I < 0.10 (0.0-0.29) NG/ML B-Natriuretic Peptide (<100) PG/ML Total Protein 7.5 (6.0-8.0) g/dL Albumin 3.8 (3.5-5.0) g/dL Globulin 3.7 H (2.0-3.5) g/dL Albumin/Globulin Ratio 1.0 L (1.3-2.8) 11/02/16 11/02/16 Range/Units 17:35 17:35 WBC (4.0-11.0) K/uL RBC (4.50-5.90) M/uL Hgb (13.0-17.0) g/dL Hct (38.0-50.0) % MCV (80.0-98.0) fL MCH (27.0-32.0) pg MCHC (31.0-37.0) g/dL RDW Std Deviation (28.0-62.0) fl RDW Coeff of Hung (11.0-15.0) % Plt Count (150-400) K/uL MPV (7.40-12.00) fL Neut % (Auto) (48.0-80.0) % Lymph % (Auto) (16.0-40.0) % [place] % (Auto) (0.0-15.0) % Eos % (Auto) (0.0-7.0) % Baso % (Auto) (0.0-1.5) % Neut # (Auto) (1.4-5.7) K/uL Lymph # (Auto) (0.6-2.4) K/uL [place] # (Auto) (0.0-0.8) K/uL Eos # (Auto) (0.0-0.7) K/uL Baso # (Auto) (0.0-0.1) K/uL Nucleated RBC % /100WBC Nucleated RBCs # K/uL INR 1.05 (0.86-1.11) Sodium (136-146) mmol/L Potassium (3.5-5.1) mmol/L Chloride (98-110) mmol/L Carbon Dioxide (21-31) mmol/L BUN (6.0-23.0) mg/dL Creatinine (0.6-1.5) mg/dL Est Cr Clr Drug Dosing mL/min Estimated GFR (MDRD) ml/min Glucose (60-110) mg/dL Calcium (8.8-10.8) mg/dL Total Bilirubin (0.1-1.5) mg/dL AST (5-40) IU/L ALT (8-54) IU/L Alkaline Phosphatase (40-150) Troponin I (0.0-0.29) NG/ML B-Natriuretic Peptide 1397 H (<100) PG/ML Total Protein (6.0-8.0) g/dL Albumin (3.5-5.0) g/dL Globulin (2.0-3.5) g/dL Albumin/Globulin Ratio (1.3-2.8) Meds: Medications Generic Name Dose Route Start Last Admin Trade Name Chrissy PRN Reason Stop Dose Admin Sodium Chloride 10 ml 11/02/16 17:21 Saline Flush FLUSH ASDIRECTED PRN Keep Vein Open Sodium Chloride 2.5 ml 11/02/16 17:21 Saline Flush FLUSH ASDIRECTED PRN Keep Vein Open Discontinued Medications Generic Name Dose Route Start Last Admin Trade Name Chrissy PRN Reason Stop Dose Admin Albuterol/Ipratropium 3 ml 11/02/16 17:16 11/02/16 17:24 Duoneb 3.0-0.5 Mg/3 Ml NEB 11/02/16 17:17 3 ml ONETIME ONE Administration Aspirin 324 mg 11/02/16 17:22 11/02/16 17:47 Aspirin PO 11/02/16 17:23 324 mg ONETIME ONE Administration Furosemide 40 mg 11/02/16 18:04 Lasix IVPUSH 11/02/16 18:05 NOW ONE Nitroglycerin 0.4 mg 11/02/16 17:22 Nitrostat SL 11/02/16 17:33 Q5M PRN Chest Pain Departure - Departure Time of Disposition: 18:24 Disposition: Admitted As Inpatient 64 Condition: Good Clinical Impression: CHF (congestive heart failure) Qualifiers: Congestive heart failure type: unspecified congestive heart failure type Congestive heart failure chronicity: acute on chronic Qualified Code(s): I50.9 - Heart failure, unspecified Atrial fibrillation Qualifiers: Atrial fibrillation type: chronic Qualified Code(s): I48.2 - Chronic atrial fibrillation - Discharge Information Forms: ED Department Discharge - My Orders Last 24 Hours: My Active Orders 11/02/16 17:16 RT Aerosol Therapy [RC] ASDIRECTED 11/02/16 17:21 Cardiac Monitoring [RC] . DIRECTED EKG Documentation Completion [RC] STAT Oxygen Therapy, ED [RC] ASDIRECTED Chest 1V Frontal [CR] Stat UA W/MICROSCOPIC [URIN] Stat Sodium Chloride 0.9% [Saline Flush] 10 ml FLUSH ASDIRECTED PRN Sodium Chloride 0.9% [Saline Flush] 2.5 ml FLUSH ASDIRECTED PRN Saline Lock Insert [OM.PC] Stat - Assessment/Plan Last 24 Hours: My Active Orders 11/02/16 17:16 RT Aerosol Therapy [RC] ASDIRECTED 11/02/16 17:21 Cardiac Monitoring [RC] . DIRECTED EKG Documentation Completion [RC] STAT Oxygen Therapy, ED [RC] ASDIRECTED Chest 1V Frontal [CR] Stat UA W/MICROSCOPIC [URIN] Stat Sodium Chloride 0.9% [Saline Flush] 10 ml FLUSH ASDIRECTED PRN Sodium Chloride 0.9% [Saline Flush] 2.5 ml FLUSH ASDIRECTED PRN Saline Lock Insert [OM.PC] Stat
[2016-11-02] MEDS ORDERED: Acetaminophen 500 MG Tab PO PRN (19:39)
[2016-11-02] MEDS ORDERED: Bisacodyl 5 MG Tab PO PRN (19:39)
[2016-11-02] MEDS ORDERED: Morphine 2 MG/ML Syringe IVPUSH PRN (19:39)
[2016-11-02] MEDS ORDERED: Temazepam 15 MG Cap PO PRN (19:39)
[2016-11-02] MEDS ORDERED: Metoprolol Tartrate 5 MG/5 ML SDV IVPUSH PRN (19:43)
--- NOTE | 2016-11-02 19:51 | PCM.HP ---
H&P History of Present Illness - General Date of Service: 11/02/16 Admit Problem/Dx: Admission Diagnosis/Problem Admission Diagnosis/Problem CHF, Congestive heart failure Source of Information: Patient, Provider, RN - History of Present Illness Initial Comments - Free Text/Narative: he had some chest pain earlier today. The pain has completely resolved now. He is visiting from the [facility] and was hospitalized here in July 2016 for atrial fibrillation. At that time his echocardiogram showed, atrial fibrillation , LVEF 15-20%, severe aortic regurgitation, moderate to severe aortic stenosis and global hypokineses. He is pain free now. He has chronic orthopnea and CHAPPELL. He was prescribed lasix, lisinopril , metoprolol and warfarin. He stopped the warfarin when it " ran out". He has seen Dr Miller , cardiology , but does not have a primary care physician. He has no current bleeding reported. No LE edema noted. no pain Pain Score (Numeric/FACES): 0 - Related Data Allergies/Adverse Reactions: Allergies Allergy/AdvReac Type Severity Reaction Status Date / Time No Known Allergies Allergy Verified 11/02/16 17:15 Home Medications: Home Meds amLODIPine [Norvasc] 5 mg PO DAILY 07/25/16 [History] Furosemide [Lasix] 20 mg PO DAILY #30 tablet 07/28/16 [Rx] Lisinopril 2.5 mg PO DAILY #30 tablet 07/28/16 [Rx] Metoprolol Succinate 50 mg PO DAILY #30 tab 07/28/16 [Rx] Past Medical History HEENT History: Reports: None Cardiovascular History: Reports: Afib, Cardiomyopathy, Heart Failure, Hypertension, Other (See Below) (valvular heart disease) Other Cardiovascular History: Atrial Flutter. CHF Respiratory History: Reports: None Gastrointestinal History: Reports: None. Denies: Cirrhosis Genitourinary History: Reports: None. Denies: Chronic Renal Insuffiency Musculoskeletal History: Reports: None Neurological History: Reports: None. Denies: CVA, MS Psychiatric History: Reports: None Endocrine/Metabolic History: Reports: None. Denies: Diabetes, Type II Hematologic History: Reports: None Immunologic History: Reports: None Oncologic (Cancer) History: Reports: None Dermatologic History: Reports: None - Infectious Disease History Infectious Disease History: Reports: Chicken Pox, Measles, Mumps - Past Surgical History Head Surgeries/Procedures: Reports: None Cardiovascular Surgical History: Reports: None GI Surgical History: Reports: Appendectomy Social & Family History - Family History Family Medical History: Noncontributory - Tobacco Use Smoking Status *Q: Current Every Day Smoker Years of Tobacco use: 45 Packs/Tins Daily: 0.3 Used Tobacco, but Quit: No Tobacco Use Comment: stop 1 month ago Second Hand Smoke Exposure: Yes - Caffeine Use Caffeine Use: Reports: Coffee, Soda - Alcohol Use Alcohol Use in Last Twelve Months: No - Recreational Drug Use Recreational Drug Use: No H&P Review of Systems - Review of Systems: Review Of Systems: See Below General: Denies: Fever, Chills HEENT: Denies: Ear Pain, Sore Throat Pulmonary: Reports: Shortness of Breath. Denies: Cough, Sputum, Hemoptysis Cardiovascular: Reports: Chest Pain (as per HPI) Gastrointestinal: Denies: Abdominal Pain, Black Stool, Bloody Stool (no current blood stools but he has noted occasional blood with a bowel movement which he has thought might be related to "hermorrhoids". ), Hematemesis, Hematochezia Genitourinary: Denies: Dysuria, Hematuria Skin: Denies: Jaundice Psychiatric: Denies: Agitation Exam - Exam Exam: See Below - Vital Signs Vital Signs: Last Vital Signs Temp 97 F 11/02/16 17:16 Pulse 106 H 11/02/16 18:14 Resp 20 11/02/16 18:30 BP 148/75 H 11/02/16 18:30 Pulse Ox 97 11/02/16 18:30 Weight: 68.2 kg - Exam General: Alert, Oriented, Cooperative. No: Mild Distress HEENT: Conjunctiva Clear, EOMI Neck: Supple, Trachea Midline Lungs: Clear to Auscultation, Normal Respiratory Effort, Rales (very faint basilar rales) Cardiovascular: Irregular Rhythm, Tachycardia. No: Systolic Murmur, Diastolic Murmur Abdomen: Soft. No: Distention, Tenderness (Male) Exam: Deferred Rectal (Males) Exam: Deferred Extremities: No: Calf Tenderness, Edema Neurological: Cranial Nerves Intact, Normal Speech - Patient Data Lab Results Last 24 hrs: Laboratory Results - last 24 hr 11/02/16 Range/Units 18:20 Urine Color YELLOW Urine Appearance CLEAR Urine pH 5.5 (5.0-8.0) Ur Specific [place] 1.010 (1.001-1.035) Urine Protein NEGATIVE (NEGATIVE) mg/dL Urine Glucose (UA) NEGATIVE (NEGATIVE) mg/dL Urine Ketones NEGATIVE (NEGATIVE) mg/dL Urine Occult Blood NEGATIVE (NEGATIVE) Urine Nitrite NEGATIVE (NEGATIVE) Urine Bilirubin NEGATIVE (NEGATIVE) Urine Urobilinogen 0.2 (<2.0) EU/dL Ur Leukocyte Esterase NEGATIVE (NEGATIVE) Urine RBC NONE SEEN (0-2/HPF) Urine WBC 0-1 (0-5/HPF) Ur Epithelial Cells NOT SEEN (NONE-FEW) Calcium Oxalate Crystal RARE (NEGATIVE) Urine Bacteria RARE (NEGATIVE) Result Diagrams: 11/02/16 17:35 11/02/16 17:35 Kurt Results Last 24 hrs: CXR: cardiomegaly; interstitial edema EKG: atrial fibrillation; poor R wave progression across precordial leads c/w old anterior CT *Q Meaningful Use (ADM) - VTE *Q VTE Criteria *Q: - Stroke *Q Stroke Criteria *Q: - AMI *Q AMI Criteria *Q: - Problem List (1) Chest pain SNOMED Code(s): 74465289 ICD Code: R07.9 - CHEST PAIN, UNSPECIFIED Status: Acute Current Visit: Yes (2) Aortic stenosis SNOMED Code(s): 09475127 ICD Code: I35.0 - NONRHEUMATIC AORTIC (VALVE) STENOSIS Status: Acute Current Visit: Yes (3) Aortic valve regurgitation SNOMED Code(s): 80603934 ICD Code: I35.1 - NONRHEUMATIC AORTIC (VALVE) INSUFFICIENCY Status: Acute Current Visit: Yes (4) Cardiomyopathy SNOMED Code(s): 59471942 ICD Code: I42.9 - CARDIOMYOPATHY, UNSPECIFIED Status: Acute Current Visit : Yes (5) Hyperglycemia SNOMED Code(s): 61933213 ICD Code: R73.9 - HYPERGLYCEMIA, UNSPECIFIED Status: Acute Current Visit : Yes (6) Atrial fibrillation SNOMED Code(s): 63972409 ICD Code: I48.91 - UNSPECIFIED ATRIAL FIBRILLATION Status: Acute Current Visit: Yes Qualifiers: Atrial fibrillation type: chronic Qualified Code(s): I48.2 - Chronic atrial fibrillation (7) CHF (congestive heart failure) SNOMED Code(s): 03627281 ICD Code: I50.9 - HEART FAILURE, UNSPECIFIED Status: Acute Current Visit : Yes Qualifiers: Congestive heart failure type: unspecified congestive heart failure type Congestive heart failure chronicity: acute on chronic Qualified Code(s): I50.9 - Heart failure, unspecified Problem List Initiated/Reviewed/Updated: Yes Orders Last 24hrs: Active Orders 24 hr Category Date Time Status Oxygen Therapy [RC] PRN Care 11/02/16 19:39 Ordered VTE/DVT Education [RC] PER UNIT ROUTINE Care 11/02/16 19:39 Ordered Vital Signs [RC] Q4H Care 11/02/16 19:39 Ordered BASIC METABOLIC PANEL,BMP [CHEM] AM Lab 11/03/16 05:11 Ordered CBC WITH AUTO DIFF [HEME] AM Lab 11/03/16 05:11 Ordered MAGNESIUM [CHEM] AM Lab 11/03/16 05:11 Ordered TROPONIN I [CHEM] Q6H Lab 11/02/16 23:00 Ordered TROPONIN I [CHEM] Q6H Lab 11/03/16 05:00 Ordered Acetaminophen [Tylenol] Med 11/02/16 19:39 Ordered 500 mg PO Q4H PRN Aspirin Med 11/03/16 09:00 Ordered 81 mg PO DAILY Bisacodyl [Dulcolax] Med 11/02/16 19:39 Ordered 5 mg PO DAILY PRN Docusate Sodium [Colace] Med 11/02/16 21:00 Ordered 100 mg PO BID Enoxaparin [Lovenox] Med 11/02/16 19:45 Ordered 60 mg SUBCUT Q24H Furosemide [Lasix] Med 11/03/16 09:00 Ordered 20 mg PO DAILY Lisinopril Med 11/03/16 09:00 Ordered 2.5 mg PO DAILY Metoprolol Succinate [Toprol XL] Med 11/03/16 09:00 Ordered 50 mg PO DAILY Metoprolol Tartrate [Lopressor] Med 11/02/16 19:43 Ordered 5 mg IVPUSH Q4H PRN Morphine Med 11/02/16 19:39 Ordered 2 mg IVPUSH Q2H PRN Nitroglycerin [Nitro-Bid 2%] Med 11/02/16 19:45 Ordered 1 gm TOP Q6H Temazepam [Restoril] Med 11/02/16 19:39 Ordered 15 mg PO BEDTIME PRN amLODIPine [Norvasc] Med 11/03/16 09:00 Ordered 5 mg PO DAILY Resuscitation Status Routine Resus Stat 11/02/16 19:39 Ordered Medication Orders Sodium Chloride (Saline Flush) 10 ml FLUSH ASDIRECTED PRN PRN Reason: Keep Vein Open Sodium Chloride (Saline Flush) 2.5 ml FLUSH ASDIRECTED PRN PRN Reason: Keep Vein Open Assessment/Plan Comment:: 11/02/2016 serial troponins add nitroglycerin paste lovenox aspirin telemetry check Hg A1C tomorrow plan to seek cardiology consultation lipid profile Timo Alba MD
[2016-11-02] MEDS ORDERED: Enoxaparin 60 MG/0.6 ML Syringe SUBCUT SCH (20:00)
[2016-11-02] MEDS: Docusate Sodium 100 MG Cap PO SCH (20:04)
[2016-11-02] MEDS: Nitroglycerin 2% Oint 1 GM UD Packet TOP SCH (20:04)
[2016-11-02] MEDS ORDERED: Metoprolol Succinate 50 MG Tab.ER PO ONE (20:37)
[2016-11-03] MEDS: Nitroglycerin 2% Oint 1 GM UD Packet TOP SCH ×2 (01:56→08:09)
[2016-11-03 05:54] LABS: CHLORIDE,CL 107 mmol/L (98-110); SODIUM,NA 139 mmol/L (136-146)
[2016-11-03] MEDS ORDERED: Enoxaparin 100 MG/1 ML Syringe SUBCUT SCH (08:00)
[2016-11-03] MEDS: Docusate Sodium 100 MG Cap PO SCH (08:11)
[2016-11-03] MEDS ORDERED: Aspirin 81 MG Tab.Chew PO SCH (09:00)
[2016-11-03] MEDS ORDERED: amLODIPine 5 MG Tab PO SCH (09:00)
[2016-11-03] MEDS ORDERED: Enoxaparin 60 MG/0.6 ML Syringe SUBCUT SCH (09:00)
[2016-11-03] MEDS ORDERED: Furosemide 20 MG Tab PO SCH (09:00)
[2016-11-03] MEDS ORDERED: Lisinopril 5 MG Tab PO SCH (09:00)
[2016-11-03] MEDS ORDERED: Metoprolol Succinate 50 MG Tab.ER PO SCH (09:00)
[2016-11-03] MEDS ORDERED: Isosorbide Mononitrate 30 MG Tab.ER PO SCH (10:30)
[2016-11-03] MEDS ORDERED: Furosemide 40 MG/4 ML VIAL IVPUSH ONE (12:15)
[2016-11-03 12:23] VITALS: BP 110/71
--- NOTE | 2016-11-03 12:41 | CR ---
EXAM DATE: 11/02/16 PATIENT'S AGE: 55 Patient: GIANCARLO BERMUDEZ Facility: [place], [place] Site . Site : [id number] Study: XRay Chest [id number]/16/2017 5:54:18 PM Ordering Physician: Doctor Heath Final Report: INDICATION: sob HISTORY: Shortness of breath. COMPARISON: 07/25/2016. TECHNIQUE: Chest one-view portable upright. FINDINGS: Cardiomegaly. Pulmonary vasculature is indistinct. Terrie B-lines are present, suggests a component of interstitial edema. This is more evident in the right lower lung zone. There is no focal consolidation or pneumothorax. The central airway is normal. The osseous structures are intact. Lateral costophrenic sulci are sharp. IMPRESSION: Cardiomegaly with interstitial pulmonary edema. Dictated by Andrade Wallace MD @ 11/02/2016 6:01:17 PM Dictated by: Andrade Wallace MD @ 11/02/2016 18:01:25 (Electronic Signature) Report Signed by Proxy. [facility]
--- NOTE | 2016-11-03 12:42 | PCM.PN ---
- General Info Date of Service: 11/03/16 Subjective Update: He is feeling better. His breathing is better. - Patient Data Vitals - most recent: Last Vital Signs Temp 98.1 F 11/03/16 08:00 Pulse 83 11/03/16 08:11 Resp 18 11/03/16 08:00 BP 110/71 11/03/16 12:19 Pulse Ox 97 11/03/16 08:00 Weight - most recent: 67.3 kg I&O - last 24 hours: Intake & Output 11/02/16 11/03/16 11/03/16 22:59 06:59 14:59 Intake Total 250 Output Total 1680 Balance -1430 Lab Results last 24 hrs: Laboratory Results - last 24 hr 11/02/16 11/02/16 11/03/16 Range/Units 18:20 22:51 05:27 WBC (4.0-11.0) K/uL RBC (4.50-5.90) M/uL Hgb (13.0-17.0) g/dL Hct (38.0-50.0) % MCV (80.0-98.0) fL MCH (27.0-32.0) pg MCHC (31.0-37.0) g/dL RDW Std Deviation (28.0-62.0) fl RDW Coeff of Hung (11.0-15.0) % Plt Count (150-400) K/uL MPV (7.40-12.00) fL Neut % (Auto) (48.0-80.0) % Lymph % (Auto) (16.0-40.0) % Woods % (Auto) (0.0-15.0) % Eos % (Auto) (0.0-7.0) % Baso % (Auto) (0.0-1.5) % Neut # (Auto) (1.4-5.7) K/uL Lymph # (Auto) (0.6-2.4) K/uL Woods # (Auto) (0.0-0.8) K/uL Eos # (Auto) (0.0-0.7) K/uL Baso # (Auto) (0.0-0.1) K/uL Nucleated RBC % /100WBC Nucleated RBCs # K/uL Sodium (136-146) mmol/L Potassium (3.5-5.1) mmol/L Chloride (98-110) mmol/L Carbon Dioxide (21-31) mmol/L BUN (6.0-23.0) mg/dL Creatinine (0.6-1.5) mg/dL Est Cr Clr Drug Dosing mL/min Estimated GFR (MDRD) ml/min Glucose (60-110) mg/dL Hemoglobin A1c (0.0-6.0) % Calcium (8.8-10.8) mg/dL Magnesium (1.5-2.3) mEq/L Troponin I < 0.10 < 0.10 (0.0-0.29) NG/ML Triglycerides (10-190) mg/dL Cholesterol (131-240) mg/dL LDL Cholesterol, Calc (60-180) mg/dL VLDL Cholesterol (5-55) mg/dL HDL Cholesterol (40-80) mg/dL Cholesterol/HDL Ratio (3.3-6.0) Urine Color YELLOW Urine Appearance CLEAR Urine pH 5.5 (5.0-8.0) Ur Specific [place] 1.010 (1.001-1.035) Urine Protein NEGATIVE (NEGATIVE) mg/dL Urine Glucose (UA) NEGATIVE (NEGATIVE) mg/dL Urine Ketones NEGATIVE (NEGATIVE) mg/dL Urine Occult Blood NEGATIVE (NEGATIVE) Urine Nitrite NEGATIVE (NEGATIVE) Urine Bilirubin NEGATIVE (NEGATIVE) Urine Urobilinogen 0.2 (<2.0) EU/dL Ur Leukocyte Esterase NEGATIVE (NEGATIVE) Urine RBC NONE SEEN (0-2/HPF) Urine WBC 0-1 (0-5/HPF) Ur Epithelial Cells NOT SEEN (NONE-FEW) Calcium Oxalate Crystal RARE (NEGATIVE) Urine Bacteria RARE (NEGATIVE) 11/03/16 11/03/16 11/03/16 Range/Units 05:27 05:27 05:27 WBC 9.37 (4.0-11.0) K/uL RBC 5.12 (4.50-5.90) M/uL Hgb 16.0 (13.0-17.0) g/dL Hct 46.5 (38.0-50.0) % MCV 90.8 (80.0-98.0) fL MCH 31.3 (27.0-32.0) pg MCHC 34.4 (31.0-37.0) g/dL RDW Std Deviation 44.5 (28.0-62.0) fl RDW Coeff of Hung 14 (11.0-15.0) % Plt Count 138 L (150-400) K/uL MPV 10.30 (7.40-12.00) fL Neut % (Auto) 33.4 L (48.0-80.0) % Lymph % (Auto) 51.8 H (16.0-40.0) % Woods % (Auto) 10.0 (0.0-15.0) % Eos % (Auto) 4.3 (0.0-7.0) % Baso % (Auto) 0.5 (0.0-1.5) % Neut # (Auto) 3.1 (1.4-5.7) K/uL Lymph # (Auto) 4.9 H (0.6-2.4) K/uL Woods # (Auto) 0.9 H (0.0-0.8) K/uL Eos # (Auto) 0.4 (0.0-0.7) K/uL Baso # (Auto) 0.1 (0.0-0.1) K/uL Nucleated RBC % 0.0 /100WBC Nucleated RBCs # 0 K/uL Sodium 139 (136-146) mmol/L Potassium 4.3 (3.5-5.1) mmol/L Chloride 107 (98-110) mmol/L Carbon Dioxide 24 (21-31) mmol/L BUN 15 (6.0-23.0) mg/dL Creatinine 1.1 (0.6-1.5) mg/dL Est Cr Clr Drug Dosing 67.20 mL/min Estimated GFR (MDRD) > 60.0 ml/min Glucose 134 H (60-110) mg/dL Hemoglobin A1c 7.1 H (0.0-6.0) % Calcium 9.0 (8.8-10.8) mg/dL Magnesium 2.0 (1.5-2.3) mEq/L Troponin I (0.0-0.29) NG/ML Triglycerides (10-190) mg/dL Cholesterol (131-240) mg/dL LDL Cholesterol, Calc (60-180) mg/dL VLDL Cholesterol (5-55) mg/dL HDL Cholesterol (40-80) mg/dL Cholesterol/HDL Ratio (3.3-6.0) Urine Color Urine Appearance Urine pH (5.0-8.0) Ur Specific [place] (1.001-1.035) Urine Protein (NEGATIVE) mg/dL Urine Glucose (UA) (NEGATIVE) mg/dL Urine Ketones (NEGATIVE) mg/dL Urine Occult Blood (NEGATIVE) Urine Nitrite (NEGATIVE) Urine Bilirubin (NEGATIVE) Urine Urobilinogen (<2.0) EU/dL Ur Leukocyte Esterase (NEGATIVE) Urine RBC (0-2/HPF) Urine WBC (0-5/HPF) Ur Epithelial Cells (NONE-FEW) Calcium Oxalate Crystal (NEGATIVE) Urine Bacteria (NEGATIVE) 11/03/16 Range/Units 05:27 WBC (4.0-11.0) K/uL RBC (4.50-5.90) M/uL Hgb (13.0-17.0) g/dL Hct (38.0-50.0) % MCV (80.0-98.0) fL MCH (27.0-32.0) pg MCHC (31.0-37.0) g/dL RDW Std Deviation (28.0-62.0) fl RDW Coeff of Hung (11.0-15.0) % Plt Count (150-400) K/uL MPV (7.40-12.00) fL Neut % (Auto) (48.0-80.0) % Lymph % (Auto) (16.0-40.0) % [place] % (Auto) (0.0-15.0) % Eos % (Auto) (0.0-7.0) % Baso % (Auto) (0.0-1.5) % Neut # (Auto) (1.4-5.7) K/uL Lymph # (Auto) (0.6-2.4) K/uL [place] # (Auto) (0.0-0.8) K/uL Eos # (Auto) (0.0-0.7) K/uL Baso # (Auto) (0.0-0.1) K/uL Nucleated RBC % /100WBC Nucleated RBCs # K/uL Sodium (136-146) mmol/L Potassium (3.5-5.1) mmol/L Chloride (98-110) mmol/L Carbon Dioxide (21-31) mmol/L BUN (6.0-23.0) mg/dL Creatinine (0.6-1.5) mg/dL Est Cr Clr Drug Dosing mL/min Estimated GFR (MDRD) ml/min Glucose (60-110) mg/dL Hemoglobin A1c (0.0-6.0) % Calcium (8.8-10.8) mg/dL Magnesium (1.5-2.3) mEq/L Troponin I (0.0-0.29) NG/ML Triglycerides 317 H (10-190) mg/dL Cholesterol 162 (131-240) mg/dL LDL Cholesterol, Calc 77 (60-180) mg/dL VLDL Cholesterol 63 H (5-55) mg/dL HDL Cholesterol 22 L (40-80) mg/dL Cholesterol/HDL Ratio 7.4 H (3.3-6.0) Urine Color Urine Appearance Urine pH (5.0-8.0) Ur Specific [place] (1.001-1.035) Urine Protein (NEGATIVE) mg/dL Urine Glucose (UA) (NEGATIVE) mg/dL Urine Ketones (NEGATIVE) mg/dL Urine Occult Blood (NEGATIVE) Urine Nitrite (NEGATIVE) Urine Bilirubin (NEGATIVE) Urine Urobilinogen (<2.0) EU/dL Ur Leukocyte Esterase (NEGATIVE) Urine RBC (0-2/HPF) Urine WBC (0-5/HPF) Ur Epithelial Cells (NONE-FEW) Calcium Oxalate Crystal (NEGATIVE) Urine Bacteria (NEGATIVE) Med Orders - Current: Current Medications Acetaminophen (Tylenol Extra Strength) 500 mg PO Q4H PRN PRN Reason: Pain (Mild 1-3)/fever Amlodipine Besylate (Norvasc) 5 mg PO DAILY [facility] Last Admin: 11/03/16 10:17 Dose: 5 mg Aspirin (Aspirin) 81 mg PO DAILY [facility] Last Admin: 11/03/16 08:11 Dose: 81 mg Bisacodyl (Dulcolax) 5 mg PO DAILY PRN PRN Reason: Constipation Docusate Sodium (Colace) 100 mg PO BID [facility] Last Admin: 11/03/16 08:11 Dose: 100 mg Enoxaparin Sodium (Lovenox) 60 mg SUBCUT Q12HR [facility] Last Admin: 11/03/16 08:13 Dose: 60 mg Furosemide (Lasix) 20 mg PO DAILY [facility] Last Admin: 11/03/16 08:11 Dose: 20 mg Isosorbide Mononitrate (Imdur) 30 mg PO DAILY [facility] Last Admin: 11/03/16 12:19 Dose: 30 mg Lisinopril (Prinivil) 2.5 mg PO DAILY [facility] Last Admin: 11/03/16 10:17 Dose: 2.5 mg Metoprolol Succinate (Toprol Xl) 50 mg PO DAILY [facility] Last Admin: 11/03/16 08:11 Dose: 50 mg Metoprolol Tartrate (Lopressor) 5 mg IVPUSH Q4H PRN PRN Reason: Other Stop: 11/05/16 07:44 Morphine Sulfate (Morphine) 2 mg IVPUSH Q2H PRN PRN Reason: Pain (severe 7-10) Stop: 11/03/16 19:40 Sodium Chloride (Saline Flush) 10 ml FLUSH ASDIRECTED PRN PRN Reason: Keep Vein Open Sodium Chloride (Saline Flush) 2.5 ml FLUSH ASDIRECTED PRN PRN Reason: Keep Vein Open Temazepam (Restoril) 15 mg PO BEDTIME PRN PRN Reason: Sleep Discontinued Medications Albuterol/Ipratropium (Duoneb 3.0-0.5 Mg/3 Ml) 3 ml NEB ONETIME ONE Stop: 11/02/16 17:17 Last Admin: 11/02/16 17:24 Dose: 3 ml Aspirin (Aspirin) 324 mg PO ONETIME ONE Stop: 11/02/16 17:23 Last Admin: 11/02/16 17:47 Dose: 324 mg Enoxaparin Sodium (Lovenox) 60 mg SUBCUT Q24H [facility] Last Admin: 11/02/16 20:43 Dose: 60 mg Enoxaparin Sodium (Lovenox) 60 mg SUBCUT Q12HR [facility] Furosemide (Lasix) 40 mg IVPUSH NOW ONE Stop: 11/02/16 18:05 Last Admin: 11/02/16 18:15 Dose: 40 mg Furosemide (Lasix) 40 mg IVPUSH NOW ONE Stop: 11/03/16 12:16 Last Admin: 11/03/16 12:22 Dose: 40 mg Metoprolol Succinate (Toprol Xl) 50 mg PO Stat ONE Stop: 11/02/16 20:38 Last Admin: 11/02/16 20:43 Dose: 50 mg Nitroglycerin (Nitrostat) 0.4 mg SL Q5M PRN PRN Reason: Chest Pain Stop: 11/02/16 17:33 Nitroglycerin (Nitro-Bid 2%) 1 gm TOP Q6H [facility] Last Admin: 11/03/16 08:09 Dose: 1 gm - Exam General: alert, oriented, cooperative Neck: supple Lungs: Other (slight bibasilar rales) Cardiovascular: Irregular Rhythm Extremities: no edema - Problem List & Annotations (1) Chest pain SNOMED Code(s): 07234105 Code(s): R07.9 - CHEST PAIN, UNSPECIFIED Status: Acute Current Visit: Yes (2) Aortic stenosis SNOMED Code(s): 97807670 Code(s): I35.0 - NONRHEUMATIC AORTIC (VALVE) STENOSIS Status: Acute Current Visit: Yes (3) Aortic valve regurgitation SNOMED Code(s): 08569578 Code(s): I35.1 - NONRHEUMATIC AORTIC (VALVE) INSUFFICIENCY Status: Acute Current Visit: Yes (4) Cardiomyopathy SNOMED Code(s): 37518708 Code(s): I42.9 - CARDIOMYOPATHY, UNSPECIFIED Status: Acute Current Visit : Yes (5) Hyperglycemia SNOMED Code(s): 91529945 Code(s): R73.9 - HYPERGLYCEMIA, UNSPECIFIED Status: Acute Current Visit: Yes (6) Atrial fibrillation SNOMED Code(s): 27237847 Code(s): I48.91 - UNSPECIFIED ATRIAL FIBRILLATION Status: Acute Current Visit: Yes Qualifiers: Atrial fibrillation type: chronic Qualified Code(s): I48.2 - Chronic atrial fibrillation (7) CHF (congestive heart failure) SNOMED Code(s): 07913647 Code(s): I50.9 - HEART FAILURE, UNSPECIFIED Status: Acute Current Visit: Yes Qualifiers: Congestive heart failure type: unspecified congestive heart failure type Congestive heart failure chronicity: acute on chronic Qualified Code(s): I50.9 - Heart failure, unspecified (8) Bicuspid aortic valve SNOMED Code(s): 67816851 Code(s): Q23.1 - CONGENITAL INSUFFICIENCY OF AORTIC VALVE Status: Acute Current Visit: Yes (9) Diabetes mellitus, type II SNOMED Code(s): 64902978 Code(s): E11.9 - TYPE 2 DIABETES MELLITUS WITHOUT COMPLICATIONS Status: Acute Current Visit: Yes - Problem List Review Problem List Initiated/Reviewed/Updated: Yes - My Orders Last 24 Hours: My Active Orders 11/02/16 19:02 Telemetry Monitoring [Cardiac Monitoring] [RC] Q8H 11/02/16 19:39 Oxygen Therapy [RC] PRN Vital Signs [RC] Q4H Acetaminophen [Tylenol Extra Strength] 500 mg PO Q4H PRN Bisacodyl [Dulcolax] 5 mg PO DAILY PRN Morphine 2 mg IVPUSH Q2H PRN Temazepam [Restoril] 15 mg PO BEDTIME PRN Resuscitation Status Routine 11/02/16 19:43 Metoprolol Tartrate [Lopressor] 5 mg IVPUSH Q4H PRN 11/02/16 20:00 Consult to Physician [CONS] Urgent 11/02/16 20:01 Notify Provider Consults [RC] ASDIRECTED 11/02/16 21:00 Docusate Sodium [Colace] 100 mg PO BID 11/03/16 09:00 Aspirin 81 mg PO DAILY Enoxaparin [Lovenox] 60 mg SUBCUT Q12HR Furosemide [Lasix] 20 mg PO DAILY Lisinopril [Prinivil] 2.5 mg PO DAILY Metoprolol Succinate [Toprol XL] 50 mg PO DAILY amLODIPine [Norvasc] 5 mg PO DAILY 11/03/16 10:17 Communication Order [RC] STAT 11/03/16 10:23 Consult to Manager Pacu [Consult to Diabetic Nurse Specialist] [CONS] Routine 11/03/16 10:30 Isosorbide Mononitrate [Imdur] 30 mg PO DAILY 11/03/16 Breakfast Heart Healthy Diet [DIET] - Plan Plan:: 11/02/2016 serial troponins add nitroglycerin paste lovenox aspirin telemetry check Hg A1C tomorrow plan to seek cardiology consultation lipid profile Timo Alba MD 11/03/[address] Miller Patient's resources limited financially. As he is a recent immigrant, I have been told that he is not eligible for medicaid at this time. He received diabetic education today Possible discharge later today if we can arrange appropriate follow up. arrange follow up with primary care physician. restart warfarin. Timo Alba MD
--- NOTE | 2016-11-03 13:19 | PCM.DCSUM1 ---
Discharge Summary - Hospital Course Brief History: he was admitted for worsening congestive heart failure and chest pain. - Discharge Data Discharge Date: 11/03/16 Discharge Disposition: Home, Self-Care 01 Condition: Fair - Discharge Diagnosis/Problem(s) (1) Chest pain SNOMED Code(s): 44475166 ICD Code: R07.9 - CHEST PAIN, UNSPECIFIED Status: Acute Current Visit: Yes (2) Aortic stenosis SNOMED Code(s): 78849323 ICD Code: I35.0 - NONRHEUMATIC AORTIC (VALVE) STENOSIS Status: Acute Current Visit: Yes (3) Aortic valve regurgitation SNOMED Code(s): 13206504 ICD Code: I35.1 - NONRHEUMATIC AORTIC (VALVE) INSUFFICIENCY Status: Acute Current Visit: Yes (4) Cardiomyopathy SNOMED Code(s): 29210018 ICD Code: I42.9 - CARDIOMYOPATHY, UNSPECIFIED Status: Acute Current Visit : Yes (5) Hyperglycemia SNOMED Code(s): 84236061 ICD Code: R73.9 - HYPERGLYCEMIA, UNSPECIFIED Status: Acute Current Visit : Yes (6) Atrial fibrillation SNOMED Code(s): 72091564 ICD Code: I48.91 - UNSPECIFIED ATRIAL FIBRILLATION Status: Acute Current Visit: Yes Qualifiers: Atrial fibrillation type: chronic Qualified Code(s): I48.2 - Chronic atrial fibrillation (7) CHF (congestive heart failure) SNOMED Code(s): 25111499 ICD Code: I50.9 - HEART FAILURE, UNSPECIFIED Status: Acute Current Visit : Yes Qualifiers: Congestive heart failure type: unspecified congestive heart failure type Congestive heart failure chronicity: acute on chronic Qualified Code(s): I50.9 - Heart failure, unspecified (8) Bicuspid aortic valve SNOMED Code(s): 84126934 ICD Code: Q23.1 - CONGENITAL INSUFFICIENCY OF AORTIC VALVE Status: Acute Current Visit: Yes (9) Diabetes mellitus, type II SNOMED Code(s): 92632911 ICD Code: E11.9 - TYPE 2 DIABETES MELLITUS WITHOUT COMPLICATIONS Status: Acute Current Visit: Yes - Patient Summary/Data Consults: Consultations 11/02/16 20:00 Consult to Physician [CONS] Urgent 11/03/16 10:23 Consult to Coil Winder [Consult to Diabetic Nurse Specialist] [CONS] Routine Hospital Course: He had recently run out of his medicines. These were restarted. Serial troponin were negative He is feeling back to baseline at discharge. His HgA1C is 7 and the diagnosis of DM II was made. He was instructed on an ADA Diet. I reviewed echo from July 2016 and noted that LVEF was 15-20% with moderate to severe , possible bicuspid aortic valve, and severe aortic valve regurgitation He was advised to stop smoking. Dr Miller, his mineralogy professor, was consulted. He will see Dr Amador in follow up. His warfarin is restarted Dr Miller will arrange warfarin clinic. Timo Alba MD - Discharge Plan Prescriptions/Med Rec: Aspirin 81 mg PO DAILY #100 tab.chew Warfarin [Coumadin] 1 mg PO DAILY@1400 #30 tablet Home Medications: Home Meds amLODIPine [Norvasc] 5 mg PO DAILY 07/25/16 [History] Furosemide [Lasix] 20 mg PO DAILY #30 tablet 07/28/16 [Rx] Lisinopril 2.5 mg PO DAILY #30 tablet 07/28/16 [Rx] Metoprolol Succinate 50 mg PO DAILY #30 tab 07/28/16 [Rx] Aspirin 81 mg PO DAILY #100 tab.chew 11/03/16 [Rx] Warfarin [Coumadin] 1 mg PO DAILY@1400 #30 tablet 11/03/16 [Rx] Patient Handouts: Nonspecific Chest Pain, [id number], Heart Failure, Easy-to- Read, Atrial Fibrillation, [id number] Referrals: Hardeep Curiel MD [Primary Care Provider] - 11/10/16 9:00 am Taye Amador MD [Physician] - 11/12/16 9:00 am - Patient Data Vitals - Most Recent: Last Vital Signs Temp 98.1 F 11/03/16 08:00 Pulse 83 11/03/16 08:11 Resp 18 11/03/16 08:00 BP 110/71 11/03/16 12:19 Pulse Ox 97 11/03/16 08:00 Weight - Most Recent: 67.3 kg I&O - Last 24 hours: Intake & Output 11/02/16 11/03/16 11/03/16 22:59 06:59 14:59 Intake Total 250 Output Total 1680 Balance -1430 Lab Results - Last 24 hrs: Laboratory Results - last 24 hr 11/02/16 11/02/16 11/03/16 Range/Units 18:20 22:51 05:27 WBC (4.0-11.0) K/uL RBC (4.50-5.90) M/uL Hgb (13.0-17.0) g/dL Hct (38.0-50.0) % MCV (80.0-98.0) fL MCH (27.0-32.0) pg MCHC (31.0-37.0) g/dL RDW Std Deviation (28.0-62.0) fl RDW Coeff of Hung (11.0-15.0) % Plt Count (150-400) K/uL MPV (7.40-12.00) fL Neut % (Auto) (48.0-80.0) % Lymph % (Auto) (16.0-40.0) % [place] % (Auto) (0.0-15.0) % Eos % (Auto) (0.0-7.0) % Baso % (Auto) (0.0-1.5) % Neut # (Auto) (1.4-5.7) K/uL Lymph # (Auto) (0.6-2.4) K/uL [place] # (Auto) (0.0-0.8) K/uL Eos # (Auto) (0.0-0.7) K/uL Baso # (Auto) (0.0-0.1) K/uL Nucleated RBC % /100WBC Nucleated RBCs # K/uL Sodium (136-146) mmol/L Potassium (3.5-5.1) mmol/L Chloride (98-110) mmol/L Carbon Dioxide (21-31) mmol/L BUN (6.0-23.0) mg/dL Creatinine (0.6-1.5) mg/dL Est Cr Clr Drug Dosing mL/min Estimated GFR (MDRD) ml/min Glucose (60-110) mg/dL Hemoglobin A1c (0.0-6.0) % Calcium (8.8-10.8) mg/dL Magnesium (1.5-2.3) mEq/L Troponin I < 0.10 < 0.10 (0.0-0.29) NG/ML Triglycerides (10-190) mg/dL Cholesterol (131-240) mg/dL LDL Cholesterol, Calc (60-180) mg/dL VLDL Cholesterol (5-55) mg/dL HDL Cholesterol (40-80) mg/dL Cholesterol/HDL Ratio (3.3-6.0) Urine Color YELLOW Urine Appearance CLEAR Urine pH 5.5 (5.0-8.0) Ur Specific [place] 1.010 (1.001-1.035) Urine Protein NEGATIVE (NEGATIVE) mg/dL Urine Glucose (UA) NEGATIVE (NEGATIVE) mg/dL Urine Ketones NEGATIVE (NEGATIVE) mg/dL Urine Occult Blood NEGATIVE (NEGATIVE) Urine Nitrite NEGATIVE (NEGATIVE) Urine Bilirubin NEGATIVE (NEGATIVE) Urine Urobilinogen 0.2 (<2.0) EU/dL Ur Leukocyte Esterase NEGATIVE (NEGATIVE) Urine RBC NONE SEEN (0-2/HPF) Urine WBC 0-1 (0-5/HPF) Ur Epithelial Cells NOT SEEN (NONE-FEW) Calcium Oxalate Crystal RARE (NEGATIVE) Urine Bacteria RARE (NEGATIVE) 11/03/16 11/03/16 11/03/16 Range/Units 05:27 05:27 05:27 WBC 9.37 (4.0-11.0) K/uL RBC 5.12 (4.50-5.90) M/uL Hgb 16.0 (13.0-17.0) g/dL Hct 46.5 (38.0-50.0) % MCV 90.8 (80.0-98.0) fL MCH 31.3 (27.0-32.0) pg MCHC 34.4 (31.0-37.0) g/dL RDW Std Deviation 44.5 (28.0-62.0) fl RDW Coeff of Hung 14 (11.0-15.0) % Plt Count 138 L (150-400) K/uL MPV 10.30 (7.40-12.00) fL Neut % (Auto) 33.4 L (48.0-80.0) % Lymph % (Auto) 51.8 H (16.0-40.0) % [place] % (Auto) 10.0 (0.0-15.0) % Eos % (Auto) 4.3 (0.0-7.0) % Baso % (Auto) 0.5 (0.0-1.5) % Neut # (Auto) 3.1 (1.4-5.7) K/uL Lymph # (Auto) 4.9 H (0.6-2.4) K/uL [place] # (Auto) 0.9 H (0.0-0.8) K/uL Eos # (Auto) 0.4 (0.0-0.7) K/uL Baso # (Auto) 0.1 (0.0-0.1) K/uL Nucleated RBC % 0.0 /100WBC Nucleated RBCs # 0 K/uL Sodium 139 (136-146) mmol/L Potassium 4.3 (3.5-5.1) mmol/L Chloride 107 (98-110) mmol/L Carbon Dioxide 24 (21-31) mmol/L BUN 15 (6.0-23.0) mg/dL Creatinine 1.1 (0.6-1.5) mg/dL Est Cr Clr Drug Dosing 67.20 mL/min Estimated GFR (MDRD) > 60.0 ml/min Glucose 134 H (60-110) mg/dL Hemoglobin A1c 7.1 H (0.0-6.0) % Calcium 9.0 (8.8-10.8) mg/dL Magnesium 2.0 (1.5-2.3) mEq/L Troponin I (0.0-0.29) NG/ML Triglycerides (10-190) mg/dL Cholesterol (131-240) mg/dL LDL Cholesterol, Calc (60-180) mg/dL VLDL Cholesterol (5-55) mg/dL HDL Cholesterol (40-80) mg/dL Cholesterol/HDL Ratio (3.3-6.0) Urine Color Urine Appearance Urine pH (5.0-8.0) Ur Specific [place] (1.001-1.035) Urine Protein (NEGATIVE) mg/dL Urine Glucose (UA) (NEGATIVE) mg/dL Urine Ketones (NEGATIVE) mg/dL Urine Occult Blood (NEGATIVE) Urine Nitrite (NEGATIVE) Urine Bilirubin (NEGATIVE) Urine Urobilinogen (<2.0) EU/dL Ur Leukocyte Esterase (NEGATIVE) Urine RBC (0-2/HPF) Urine WBC (0-5/HPF) Ur Epithelial Cells (NONE-FEW) Calcium Oxalate Crystal (NEGATIVE) Urine Bacteria (NEGATIVE) 11/03/16 Range/Units 05:27 WBC (4.0-11.0) K/uL RBC (4.50-5.90) M/uL Hgb (13.0-17.0) g/dL Hct (38.0-50.0) % MCV (80.0-98.0) fL MCH (27.0-32.0) pg MCHC (31.0-37.0) g/dL RDW Std Deviation (28.0-62.0) fl RDW Coeff of Hung (11.0-15.0) % Plt Count (150-400) K/uL MPV (7.40-12.00) fL Neut % (Auto) (48.0-80.0) % Lymph % (Auto) (16.0-40.0) % [place] % (Auto) (0.0-15.0) % Eos % (Auto) (0.0-7.0) % Baso % (Auto) (0.0-1.5) % Neut # (Auto) (1.4-5.7) K/uL Lymph # (Auto) (0.6-2.4) K/uL [place] # (Auto) (0.0-0.8) K/uL Eos # (Auto) (0.0-0.7) K/uL Baso # (Auto) (0.0-0.1) K/uL Nucleated RBC % /100WBC Nucleated RBCs # K/uL Sodium (136-146) mmol/L Potassium (3.5-5.1) mmol/L Chloride (98-110) mmol/L Carbon Dioxide (21-31) mmol/L BUN (6.0-23.0) mg/dL Creatinine (0.6-1.5) mg/dL Est Cr Clr Drug Dosing mL/min Estimated GFR (MDRD) ml/min Glucose (60-110) mg/dL Hemoglobin A1c (0.0-6.0) % Calcium (8.8-10.8) mg/dL Magnesium (1.5-2.3) mEq/L Troponin I (0.0-0.29) NG/ML Triglycerides 317 H (10-190) mg/dL Cholesterol 162 (131-240) mg/dL LDL Cholesterol, Calc 77 (60-180) mg/dL VLDL Cholesterol 63 H (5-55) mg/dL HDL Cholesterol 22 L (40-80) mg/dL Cholesterol/HDL Ratio 7.4 H (3.3-6.0) Urine Color Urine Appearance Urine pH (5.0-8.0) Ur Specific [place] (1.001-1.035) Urine Protein (NEGATIVE) mg/dL Urine Glucose (UA) (NEGATIVE) mg/dL Urine Ketones (NEGATIVE) mg/dL Urine Occult Blood (NEGATIVE) Urine Nitrite (NEGATIVE) Urine Bilirubin (NEGATIVE) Urine Urobilinogen (<2.0) EU/dL Ur Leukocyte Esterase (NEGATIVE) Urine RBC (0-2/HPF) Urine WBC (0-5/HPF) Ur Epithelial Cells (NONE-FEW) Calcium Oxalate Crystal (NEGATIVE) Urine Bacteria (NEGATIVE) Med Orders - Current: Current Medications Acetaminophen (Tylenol Extra Strength) 500 mg PO Q4H PRN PRN Reason: Pain (Mild 1-3)/fever Amlodipine Besylate (Norvasc) 5 mg PO DAILY [facility] Last Admin: 11/03/16 10:17 Dose: 5 mg Aspirin (Aspirin) 81 mg PO DAILY [facility] Last Admin: 11/03/16 08:11 Dose: 81 mg Bisacodyl (Dulcolax) 5 mg PO DAILY PRN PRN Reason: Constipation Docusate Sodium (Colace) 100 mg PO BID [facility] Last Admin: 11/03/16 08:11 Dose: 100 mg Enoxaparin Sodium (Lovenox) 60 mg SUBCUT Q12HR [facility] Last Admin: 11/03/16 08:13 Dose: 60 mg Furosemide (Lasix) 20 mg PO DAILY [facility] Last Admin: 11/03/16 08:11 Dose: 20 mg Isosorbide Mononitrate (Imdur) 30 mg PO DAILY [facility] Last Admin: 11/03/16 12:19 Dose: 30 mg Lisinopril (Prinivil) 2.5 mg PO DAILY [facility] Last Admin: 11/03/16 10:17 Dose: 2.5 mg Metoprolol Succinate (Toprol Xl) 50 mg PO DAILY [facility] Last Admin: 11/03/16 08:11 Dose: 50 mg Metoprolol Tartrate (Lopressor) 5 mg IVPUSH Q4H PRN PRN Reason: Other Stop: 11/05/16 07:44 Morphine Sulfate (Morphine) 2 mg IVPUSH Q2H PRN PRN Reason: Pain (severe 7-10) Stop: 11/03/16 19:40 Sodium Chloride (Saline Flush) 10 ml FLUSH ASDIRECTED PRN PRN Reason: Keep Vein Open Sodium Chloride (Saline Flush) 2.5 ml FLUSH ASDIRECTED PRN PRN Reason: Keep Vein Open Temazepam (Restoril) 15 mg PO BEDTIME PRN PRN Reason: Sleep Warfarin Sodium (Coumadin) 1 mg PO DAILY@1400 [facility] Discontinued Medications Albuterol/Ipratropium (Duoneb 3.0-0.5 Mg/3 Ml) 3 ml NEB ONETIME ONE Stop: 11/02/16 17:17 Last Admin: 11/02/16 17:24 Dose: 3 ml Aspirin (Aspirin) 324 mg PO ONETIME ONE Stop: 11/02/16 17:23 Last Admin: 11/02/16 17:47 Dose: 324 mg Enoxaparin Sodium (Lovenox) 60 mg SUBCUT Q24H [facility] Last Admin: 11/02/16 20:43 Dose: 60 mg Enoxaparin Sodium (Lovenox) 60 mg SUBCUT Q12HR [facility] Furosemide (Lasix) 40 mg IVPUSH NOW ONE Stop: 11/02/16 18:05 Last Admin: 11/02/16 18:15 Dose: 40 mg Furosemide (Lasix) 40 mg IVPUSH NOW ONE Stop: 11/03/16 12:16 Last Admin: 11/03/16 12:22 Dose: 40 mg Metoprolol Succinate (Toprol Xl) 50 mg PO Stat ONE Stop: 11/02/16 20:38 Last Admin: 11/02/16 20:43 Dose: 50 mg Nitroglycerin (Nitrostat) 0.4 mg SL Q5M PRN PRN Reason: Chest Pain Stop: 11/02/16 17:33 Nitroglycerin (Nitro-Bid 2%) 1 gm TOP Q6H [facility] Last Admin: 11/03/16 08:09 Dose: 1 gm *Q Meaningful Use (DIS) - VTE *Q VTE Criteria *Q: - Stroke *Q Stroke Criteria *Q: - AMI *Q AMI Criteria *Q:
--- NOTE | 2016-11-03 17:50 | CONS ---
DATE OF CONSULTATION: DATE OF : 1960 PRIMARY CARE PHYSICIAN: None PCP REASON FOR CONSULTATION: Heart failure. HISTORY OF PRESENT ILLNESS: This is a 55-year-old with history of cardiomyopathy as well as ejection fraction of 15% to 20% with persistent atrial fibrillation as well as atrial flutter with [id number]-ju-[id number] aortic valve regurgitation, bicuspid valve possibly, mild MR, mild TR, presented to the hospital with increasing shortness of breath. The patient's language skill is limited, so the history was taken from the patient's daughter report as well as the note. Basically, the patient come into the hospital with increasing shortness of breath and possibly chest pain. I saw him in the clinic and we discussed about the diagnostic and treatment options including cardiac catheterization and possible valve surgery and I saw him back in July 2016. At that time, he was on Lasix 20 mg once a day as well as lisinopril 2.5 mg once a day as well as amlodipine 5 mg once a day, and Toprol XL 50 mg once a day. He also supposed to be on Coumadin for his atrial flutter, however, in August his compliant was unreliable and his INR is up to 8 and he is supposed to be followed up after improved INR, however, he lost to follow up and based on the patient's daughter report he ran out the medication for quite sometime, but did not get any medication refill. Regarding the cardiac catheterization and possible also Cardiac surgery consultation for possible valve surgery, because of the patient's financial reason that has not been scheduled yet and the daughter wanted to possibly bring him back to [facility] to have it done over there. Currently, he is in the hospital. He was receiving the Lasix 40 mg IV and he put out a good urine output. Today, the Lasix 20 p.o. was resumed and he mentioned that his breathing seemed to be better, but I am not certain he is back to his baseline or not. Apparently, his INR when he was in the hospital is 1. PAST MEDICAL HISTORY: Including hypertension, [id number] aortic regurgitation, cardiomyopathy ejection fraction of 15% to 20%, atrial flutter, atrial fibrillation. REVIEW OF SYSTEMS: Limited due to the language barrier. SOCIAL HISTORY: Former smoker, no drug use, occasional alcohol drinking. FAMILY HISTORY: No history of CAD, CHF. PHYSICAL EXAMINATION: VITAL SIGNS: Blood pressure is 110/71; heart rate initially it was 102 irregular rhythm, currently is around 70 to 80; O2 saturation is 97% on room air, temperature is 36.7, his weight is 67.3 or 148 pounds. HEENT: Not pale. Mouth dry. No jaundice, JVD plus 13 cm of water. LUNGS: Crackles bilaterally. No wheezing. HEART: Normal S1, S2. Diastolic murmur. Totally irregular. ABDOMEN: Soft, nontender. Bowel sounds present. No hepatosplenomegaly. EXTREMITIES: Legs, no edema. INVESTIGATIONS: WBC 3.9, hemoglobin 16, hematocrit 46, platelet 138. INR is 1.09. Sodium 139, potassium 4.3, chloride 107, bicarbonate 24, BUN 15, creatinine 1.1. Glucose 134, A1c is 7.1. Troponin has been negative. BNP 1397. Triglyceride 317, total cholesterol 162, HDL 22. ASSESSMENT AND PLAN: This is a 55-year-old male with history of persistent atrial fibrillation, atrial flutter, cardiomyopathy unknown type, ejection fraction 15% to 20% with [id number] aortic regurgitation, possible bicuspid aortic valve, current smoker. I think he is still likely hypervolemic. I will give him one more dose of Lasix 40 mg IV and resume his Lasix of 20 p.o. We will also continue the other same medication including metoprolol as well as his DIVYA inhibitor and I still think that he need a diagnostic cardiac catheterization for his cardiomyopathy as well as possible cardiac surgeon consultation. Regarding his atrial fibrillation, atrial flutter technically he would need a long-term anticoagulation. However, his compliance seems to be not reliable. I would discuss about the option of just stay on aspirin versus stay on the Coumadin, because his INR sometime is supratherapeutic and sometime his INR is down, and his compliance is not 100%. I will talk to the patient and the patient's daughter to see what they wanted to do and also I will get a financial counselor to involve in his care as well. ARIELLA QUARLES /[id number]
== END 2016-11-03 14:10 | disposition home or self-care (01) | DRG 313 ==
LOC: MW.ED 17:10 → UNDOADMIN 18:14 → MW.ICU 18:14
PROVIDERS: ADMIT Family Medicine; ATTEND Family Medicine
DX: R07.9 Chest pain, unspecified (principal); I42.9 Cardiomyopathy, unspecified; I50.9 Heart failure, unspecified; I35.0 Nonrheumatic aortic (valve) stenosis; I35.1 Nonrheumatic aortic (valve) insufficiency; I48.2 Chronic atrial fibrillation; E11.9 Type 2 diabetes mellitus without complications; I10 Essential (primary) hypertension; F17.200 Nicotine dependence, unspecified, uncomplicated; I25.2 Old myocardial infarction; Z79.899 Other long term (current) drug therapy
CPT/HCPCS: 36415; 71010; 71010-26; 80048; 80053; 80061; 81001; 83036; 83735; 83880; 84484; 85025; 85610; 93005; 94664; 96374; 99284; 99285-25; A9270-GY; J1650; J1940

== ENCOUNTER 2019-07-11 05:12 | Emergency (ER) | payer OTHER, SELFPAY ==
[2019-07-11] MEDS ORDERED: Albuterol/Ipratropium 3.0-0.5 MG/3 ML Neb Soln NEB ONE (05:20)
[2019-07-11] MEDS ORDERED: Albuterol/Ipratropium 3.0-0.5 MG/3 ML Neb Soln ONE (05:21)
[2019-07-11] MEDS ORDERED: Succinylcholine 200 MG/10 ML MDV IV ONE (05:38)
[2019-07-11] MEDS ORDERED: Midazolam 1 MG/ML 2 ML SDV ONE (05:39)
[2019-07-11] MEDS ORDERED: Midazolam 1 MG/ML 2 ML SDV IVPUSH ONE (05:40)
[2019-07-11] MEDS ORDERED: propofoL 100 ML ONE (05:42)
[2019-07-11] MEDS ORDERED: propofoL 100 ML IV SCH (05:45)
[2019-07-11] MEDS ORDERED: cefTRIAXone 1 GM in Sodium Chloride 0.9% 50 ML IV ONE (05:49)
[2019-07-11] MEDS ORDERED: Rocuronium 50 MG/5 ML Vial IVPUSH ONE (05:50)
[2019-07-11] MEDS ORDERED: Azithromycin 500 MG in Sodium Chloride 0.9% 250 ML IV SCH (06:00)
--- NOTE | 2019-07-11 06:03 | EDM.PDOC ---
ED HPI GENERAL MEDICAL PROBLEM - General Chief Complaint: Respiratory Problem Stated Complaint: CHEST COLD Time Seen by Provider: 07/11/19 05:12 Source of Information: Reports: EMS Notes Reviewed History Limitations: Reports: Respiratory Distress - History of Present Illness INITIAL COMMENTS - FREE TEXT/NARRATIVE: Patient who presents to the emergency room in severe respiratory distress. Patient unable to talk and converse. Patient breathing around 40 not moving much air. Onset: Today Duration: Day(s):, Getting Worse Severity: Severe Improves with: Reports: None Worsens with: Reports: Movement Associated Symptoms: Reports: Shortness of Breath - Related Data Allergies Allergy/AdvReac Type Severity Reaction Status Date / Time No Known Allergies Allergy Verified 11/02/16 17:15 Home Meds: Home Meds amLODIPine [Norvasc] 5 mg PO DAILY 07/25/16 [History] Furosemide [Lasix] 20 mg PO DAILY #30 tablet 07/28/16 [Rx] Lisinopril 2.5 mg PO DAILY #30 tablet 07/28/16 [Rx] Metoprolol Succinate 50 mg PO DAILY #30 tab 07/28/16 [Rx] Aspirin 81 mg PO DAILY #100 tab.chew 11/03/16 [Rx] Warfarin [Coumadin] 1 mg PO DAILY@1400 #30 tablet 11/03/16 [Rx] Past Medical History HEENT History: Reports: None Cardiovascular History: Reports: Afib, Cardiomyopathy, Heart Failure, Hypertension, Other (See Below) (valvular heart disease) Other Cardiovascular History: Atrial Flutter. CHF Respiratory History: Reports: None Gastrointestinal History: Reports: None. Denies: Cirrhosis Genitourinary History: Reports: None. Denies: Chronic Renal Insuffiency Musculoskeletal History: Reports: None Neurological History: Reports: None. Denies: CVA, MS Psychiatric History: Reports: None Endocrine/Metabolic History: Reports: None. Denies: Diabetes, Type II Hematologic History: Reports: None Immunologic History: Reports: None Oncologic (Cancer) History: Reports: None Dermatologic History: Reports: None - Infectious Disease History Infectious Disease History: Reports: Chicken Pox, Measles, Mumps - Past Surgical History Head Surgeries/Procedures: Reports: None Cardiovascular Surgical History: Reports: None GI Surgical History: Reports: Appendectomy Social & Family History - Family History Family Medical History: Noncontributory - Caffeine Use Caffeine Use: Reports: Coffee, Soda ED ROS GENERAL - Review of Systems Review Of Systems: See Below Constitutional: Reports: Malaise, Weakness HEENT: Reports: No Symptoms Respiratory: Reports: Shortness of Breath, Wheezing Cardiovascular: Reports: Dyspnea on Exertion Endocrine: Reports: No Symptoms GI/Abdominal: Reports: No Symptoms : Reports: No Symptoms Musculoskeletal: Reports: No Symptoms Skin: Reports: No Symptoms Neurological: Reports: No Symptoms Psychiatric: Reports: No Symptoms Hematologic/Lymphatic: Reports: No Symptoms Immunologic: Reports: No Symptoms ED EXAM, SEPSIS - Physical Exam Exam: See Below Text/Narrative:: -58 year-old gentleman presents emergency room with severe respiratory distress. Patient initially started on DuoNeb approximately 1 minute. Patient could not tolerate this. Patient was immediately taken and intubated. Size 8 to using the glide scope. I was able to see the cords and the tube enters the cords. Patient was given 100 of succinylcholine prior to intubation. Patient also given. 2 mg of Versed. Patient started on propofol drip and given 50 rocuronium Exam Limited By: Respiratory Distress General Appearance: Severe Distress Eye Exam: Bilateral Eye: Normal Fundi, Normal Inspection Ears: Normal External Exam Nose: Normal Inspection Throat/Mouth: Normal Inspection, Normal Teeth, Normal Gums, Normal Oropharynx, No Airway Compromise Head: Atraumatic, Normocephalic Neck: Normal Inspection, Supple, Non-Tender, Full Range of Motion Respiratory/Chest: Respiratory Distress, Accessory Muscle Use, Retractions Cardiovascular: Normal Peripheral Pulses GI/Abdominal Exam: Normal Bowel Sounds, No Distention, No Abnormal Bruit (Male) Exam: No Hernia, Normal Inspection. No: Scrotal Swelling Rectal (Males) Exam: Deferred Back: Normal Inspection, Full Range of Motion Extremities: Normal Inspection, Normal Range of Motion Neurological: Disoriented, Slow to Respond Skin: Warm ED SEPSIS PROCEDURES - Endotracheal Intubation Time of Intubation: 05:30 ET Intubation Indication: Respiratory Failure Preparation: Suction, Balloon Tested Pre-Oxygenation: Assisted with BVM, 100% FiO2 Anesthesia Meds: Midazolam, Succinylcholine Placement: Orotracheal, Uncomplicated Placement Cords Visualized: Yes Number of Attempts: 1 Confirmed By: CO2 Indicator, Bilateral Breath Sounds, Chest Xray Tube Secured By: By RT Endotracheal Intubation Comment: 58year-old male confused O2 saturation dropping in the 60s. Patient not moving air. Patient immediately intubated after receiving 100% oxygen 2 mg of Versed. Patient bagged until his O2 saturations up to 90. With use of glide scope 1 pass cords were visualized and patient was intubated. Good color change on capnometer good breath sounds bilaterally with bagging. Patient's O2 saturation climbed to 97%. Tube was secured by respiratory therapy and chest x- ray confirmed it also. EKG INTERPRETATION EKG Date: 07/11/19 Time: 05:30 Rhythm: Other (Paced rhythm) Course - Vital Signs Text/Narrative:: 58-year-old gentleman who presents to the emergency room with a chief complaint of difficulty breathing. Patient had received ventilation in route. When patient got to the room he was struggling. Very confused and hypoxic. Respiratory rate in the 40s unable to establish exchange of oxygen. Patient was immediately placed in a different room for intubation. Patient was successfully intubated O2 saturations 97%. Patient was given antibiotics i.e. Rocephin, Zithromax, and vancomycin. Patient was cultured for influenza and Cov19. KG shows a paced rhythm. All other labs including cardiac enzymes CBC electrolytes are pending. He was placed on the patient he was given a liter of fluids. I discussed the case with and patient will be transferred for higher level of care. Diagnosis on this patient at this time is respiratory failure/sepsis Ambulances is in route At this time - Orders/Labs/Meds Orders: Active Orders 24 hr Category Date Time Status Chest 1V Frontal [CR] Stat Exams 07/11/19 05:46 Ordered CBC WITH AUTO DIFF [HEME] Stat Lab 07/11/19 05:55 Ordered CMP [COMPREHENSIVE METABOLIC PN,CMP] [CHEM] Stat Lab 07/11/19 05:30 Received CORONAVIRUS (COVID-19) PCR [MREF] Stat Lab 07/11/19 05:50 Ordered INFLUENZA A+B AG SCREEN [RM] Stat Lab 07/11/19 05:49 Ordered LACTATE WITH REFLEX [BG] Stat Lab 07/11/19 05:30 Received TROPONIN I [CHEM] Stat Lab 07/11/19 05:30 Received VANCOmycin/Water for INJ (PEG) [VANCOmycin 1.5 GM/300 Med 07/11/19 05:51 Ordered ML Premix] 1.5 gm Premix Bag 1 bag IV ONETIME cefTRIAXone [Rocephin] 1 gm Med 07/11/19 05:49 Active Sodium Chloride 0.9% [Normal Saline] 50 ml IV ONETIME Isolation [COMM] Routine Oth 07/11/19 05:50 Active Medication Orders Ceftriaxone Sodium 1 gm/ (Sodium Chloride) 50 mls @ 200 mls/hr IV ONETIME ONE Stop: 07/11/19 06:03 Vancomycin HCl 1.5 gm/ Premix 300 mls @ 300 mls/hr IV ONETIME ONE Stop: 07/11/19 05:52 Meds: Medications Generic Name Dose Route Start Last Admin Trade Name Freq PRN Reason Stop Dose Admin Ceftriaxone Sodium 1 gm/ 50 mls @ 200 mls/hr 07/11/19 05:49 Sodium Chloride IV 07/11/19 06:03 ONETIME ONE Vancomycin HCl 1.5 gm/ Premix 300 mls @ 300 mls/hr 07/11/19 05:51 IV 07/11/19 05:52 ONETIME ONE Discontinued Medications Generic Name Dose Route Start Last Admin Trade Name Freq PRN Reason Stop Dose Admin Albuterol/Ipratropium Confirm 07/11/19 05:21 Duoneb 3.0-0.5 Mg/3 Ml Administered 07/11/19 05:22 Dose 3 ml .ROUTE .STK-MED ONE Propofol Confirm 07/11/19 05:42 Diprivan 100 Ml Administered 07/11/19 05:43 Dose 100 mls @ as directed .ROUTE .STK-MED ONE Midazolam HCl Confirm 07/11/19 05:39 Versed 1 Mg/Ml Administered 07/11/19 05:40 Dose 2 mg .ROUTE .STK-MED ONE Departure - Departure Time of Disposition: 06:18 Disposition: DC/Tfer to Acute Hospital 02 Preliminary Cause of *Q: Respiratory Failure Condition: Serious Clinical Impression: CHF (congestive heart failure) Qualifiers: Qualified Code(s): I50.9 - Heart failure, unspecified - Discharge Information Referrals: Hardeep Curiel MD [Primary Care Provider] - Forms: ED Department Discharge - My Orders Last 24 Hours: My Active Orders 07/11/19 05:30 CMP [COMPREHENSIVE METABOLIC PN,CMP] [CHEM] Stat LACTATE WITH REFLEX [BG] Stat TROPONIN I [CHEM] Stat 07/11/19 05:46 Chest 1V Frontal [CR] Stat 07/11/19 05:49 INFLUENZA A+B AG SCREEN [RM] Stat cefTRIAXone [Rocephin] 1 gm Sodium Chloride 0.9% [Normal Saline] 50 ml IV ONETIME 07/11/19 05:50 CORONAVIRUS (COVID-19) PCR [MREF] Stat Isolation [COMM] Routine 07/11/19 05:51 VANCOmycin/Water for INJ (PEG) [VANCOmycin 1.5 GM/300 ML Premix] 1.5 gm Premix Bag 1 bag IV ONETIME 07/11/19 05:55 CBC WITH AUTO DIFF [HEME] Stat - Assessment/Plan Last 24 Hours: My Active Orders 07/11/19 05:30 CMP [COMPREHENSIVE METABOLIC PN,CMP] [CHEM] Stat LACTATE WITH REFLEX [BG] Stat TROPONIN I [CHEM] Stat 07/11/19 05:46 Chest 1V Frontal [CR] Stat 07/11/19 05:49 INFLUENZA A+B AG SCREEN [RM] Stat cefTRIAXone [Rocephin] 1 gm Sodium Chloride 0.9% [Normal Saline] 50 ml IV ONETIME 07/11/19 05:50 CORONAVIRUS (COVID-19) PCR [MREF] Stat Isolation [COMM] Routine 07/11/19 05:51 VANCOmycin/Water for INJ (PEG) [VANCOmycin 1.5 GM/300 ML Premix] 1.5 gm Premix Bag 1 bag IV ONETIME 07/11/19 05:55 CBC WITH AUTO DIFF [HEME] Stat
[2019-07-11] MEDS ORDERED: Sodium Chloride 0.9% 1,000 ML IV SCH (06:08)
[2019-07-11 06:16] LABS: BLOOD UREA NITROGEN,BUN 20 mg/dL (7.0-18.0); CARBON DIOXIDE,CO2 18.3 mmol/L (21.0-32.0); CHLORIDE,CL 95 mmol/L (98-107); GLUCOSE RANDOM 320 mg/dL (74-106); SODIUM,NA 132 mmol/L (136-148)
--- NOTE | 2019-07-11 06:17 | CR ---
Indication: Status post intubation. Dyspnea Technique: A single view portable chest radiograph was July 11, 2019 5:59 a.m. Comparison: November 02, 2016 Findings: Heart is mildly enlarged but appears unchanged. A pacer/ICD is noted with leads ending in the right ventricle and likely the coronary venous sinus system. An endotracheal tube is normally located. Abnormal interstitium suggesting most likely due to interstitial edema. Impression: Endotracheal tube and pacer appear to be normally located. Endotracheal tube properly located. Abnormal interstitium likely due to edema. Dictated by Duarte Yeboah MD @ Jul 11 2019 6:15AM Signed by Dr. Duarte Yeboah @ Jul 11 2019 6:16AM
[2019-07-11] MEDS ORDERED: Aspirin 300 MG Supp ONE ×2 (06:23→06:24)
[2019-07-11] MEDS ORDERED: Aspirin 300 MG Supp RECTAL ONE (06:23)
[2019-07-11] MEDS ORDERED: Nitroglycerin/D5W 0 MG/0 ML BOTTLE ONE (06:27)
[2019-07-11] MEDS ORDERED: Nitroglycerin 2% Oint 1 GM UD Packet ONE (06:29)
[2019-07-11 07:00] VITALS: BP 202/77; PULSE 73
[2019-07-11] MEDS ORDERED: Nitroglycerin 2% Oint 1 GM UD Packet TOP ONE (07:24)
== END 2019-07-11 06:45 ==
LOC: MW.ED 05:12
DX: I11.0 Hypertensive heart disease with heart failure (principal); I50.9 Heart failure, unspecified; I48.91 Unspecified atrial fibrillation; Z86.73 Personal history of transient ischemic attack (TIA), and cerebral infarction without residual deficits; Z79.82 Long term (current) use of aspirin; Z79.01 Long term (current) use of anticoagulants; Z79.899 Other long term (current) drug therapy
CPT/HCPCS: 31500; 36415; 71045; 80053; 83605; 84484; 85025; 87804; 93005; 96374; 96375; 99285; A9270; J0330; J0456; J0696; J2250; J2704; J7030; J7050; U0001; J7620-GY